=== PATIENT | female | born 1965 | race Caucasian/White ===

== ENCOUNTER 2019-08-23 10:24 | Outpatient (CLI) | payer MEDICARE, SELFPAY ==
[2019-08-23 11:24] LABS: Alanine Aminotransferase 17 U/L (4-35); Albumin Level 3.9 g/dL (3.5-5.1); Alkaline Phosphatase 108 U/L (38-126); Aspartate Amino Transferase 25 U/L (14-36); Bilirubin,Total 0.2 mg/dL (0.2-1.3); Blood Urea Nitrogen 14 mg/dL (7-17); Calcium 9.1 mg/dL (8.4-10.2); Carbon Dioxide 22 mmol/L (22-30); Chloride 107 mmol/L (98-107); Cholesterol 286 mg/dL (0-200); Estimated Glomerular Filt Rate 36; Glucose 102 mg/dL (65-105); HDL Direct 33 mg/dL; Potassium 3.7 mmol/L (3.4-5.0); Sodium 139 mmol/L (137-145); Triglycerides 294 mg/dL (<150)
[2019-08-23 11:34] LABS: LDL Cholesterol Direct 206 mg/dL
[2019-08-23 12:43] LABS: Folic Acid > 20.0 ng/mL (2.76->20)
[2019-08-26 23:04] LABS: Vitamin D 1,25 (OH)2 Total 33 pg/mL (18-72); Vitamin D2 1,25 (OH)2 12 pg/mL; Vitamin D3 1,25 (OH)2 21 pg/mL
== END 2019-08-23 10:25 | disposition home or self-care (01) ==
PROVIDERS: PCP Family Medicine; Visit Provider Family Medicine
DX: E78.5 Hyperlipidemia, unspecified (principal); E53.8 Deficiency of other specified B group vitamins; E55.9 Vitamin D deficiency, unspecified
CPT/HCPCS: 36415; 80053; 80061; 82607; 82652; 82746

== ENCOUNTER 2019-08-27 10:23 | Outpatient (CLI) | payer MEDICARE, SELFPAY | END 2019-08-27 10:24 | disposition home or self-care (01) | PROVIDERS: PCP Family Medicine; Visit Provider Nurse Practitioner | DX: R19.7 Diarrhea, unspecified (principal) | CPT/HCPCS: 87045; 87046; 87269; 87324; 87427 ==

== ENCOUNTER 2019-09-09 08:27 | Outpatient (CLI) | payer MEDICARE, SELFPAY ==
--- NOTE | ~2019-09-09 | MM_ITS ---
EXAMINATION: MM screening [facility] BI w chivo HISTORY: Screening mammogram TECHNIQUE: Craniocaudal and mediolateral oblique 3-D tomosynthesis images were obtained and synthetic 2-D images were generated. CAD analysis was submitted and interpreted. COMPARISON: 03/01/2010, 09/13/2008 BREAST PARENCHYMAL COMPOSITION: The breasts are heterogeneously dense, which may obscure small masses . FINDINGS: There is no evidence of suspicious mass, calcification, or architectural distortion to sugg est malignancy in either breast. There has been no suspicious interval change. IMPRESSION: 1. No mammographic evidence of malignancy. 2. Recommend routine screening mammography in one year. BI-RADS Category 1: Negative Reviewed, dictated and finalized at location A. [employer]
== END 2019-09-09 08:28 | disposition home or self-care (01) ==
PROVIDERS: PCP Family Medicine; Visit Provider Family Medicine
DX: Z12.31 Encounter for screening mammogram for malignant neoplasm of breast (principal)
CPT/HCPCS: 77063; 77067

== ENCOUNTER 2019-11-15 09:39 | Outpatient (CLI) | payer MEDICARE, SELFPAY ==
--- NOTE | ~2019-11-15 | XR_ITS ---
XR lumbar spine min 4V 11/15/2019 10:14 Indication: Low back pain Procedure: 5 views lumbar spine Comparison: Comparison to multiple prior studies sequentially, with oldest reviewed study dated 02/2004. Findings: Vertebral body heights are maintained. No acute fracture or traumatic malalignment. There i s mild disc narrowing at L4-5 and L5-S1. Pedicles intact. No evidence for spondylolysis or spondyloli sthesis. There is mild facet degenerative change at L4-5 and L5-S1. Sacral foramen are symmetric. Impression: 1: Mild lumbar spondylosis. Reviewed, dictated and finalized at location A. Impression: 1: Mild lumbar spondylosis.
[2019-11-15 10:07] LABS: Basophils Absolute Auto 0.1 K/mm3 (0.0-0.1); Basophils Percent Auto 0.9 % (0.2-1.2); Eosinophils Absolute Auto 0.3 K/mm3 (0-0.3); Eosinophils Percent Auto 4.6 % (0-4.4); Hematocrit 34.9 % (37.0-47.0); Hemoglobin 11.2 g/dL (12.0-15.0); Immature Granulocyte Absolute 0.02 K/mm3 (0.00-0.031); Immature Granulocyte Percent A 0.3 % (0-0.5); Immature Platelet Fraction Pct 2.5 % (0.9-11.2); Lymphocytes Percent Auto 42.1 % (18.3-44.2); Mean Corpuscular HGB Conc 32.1 g/dl (32-36); Mean Corpuscular Hemoglobin 31.5 pg (26-34); Mean Platelet Volume 9.4 fl (7.4-10.4); Monocytes Absolute Auto 0.4 K/mm3 (0.1-0.6); Monocytes Percent Auto 5.8 % (2.6-8.5); Neutrophils Absolute Auto 3.4 K/mm3 (1.3-6.7); Neutrophils Percent Auto 46.3 % (45.5-73.1); Platelet Count Result 129 k/mm3 (150-375); Red Blood Count 3.56 M/mm3 (4.2-5.4); Red Cell Distribution Width 13.1 % (11.5-14.5); White Blood Count 7.4 K/mm3 (4.5-10.0)
[2019-11-15 10:18] LABS: Alanine Aminotransferase 12 U/L (4-35); Alkaline Phosphatase 86 U/L (38-126); Aspartate Amino Transferase 23 U/L (14-36); Bilirubin,Total 0.2 mg/dL (0.2-1.3); Blood Urea Nitrogen 16 mg/dL (7-17); Calcium 8.9 mg/dL (8.4-10.2); Carbon Dioxide 26 mmol/L (22-30); Chloride 107 mmol/L (98-107); Cholesterol 159 mg/dL (0-200); Estimated Glomerular Filt Rate 31; Glucose 107 mg/dL (65-105); HDL Direct 46 mg/dL; Potassium 3.9 mmol/L (3.4-5.0); Sodium 140 mmol/L (137-145); Triglycerides 323 mg/dL (<150)
[2019-11-15 10:29] LABS: LDL Cholesterol Direct 73 mg/dL
[2019-11-15 10:53] LABS: Vitamin D 25 Hydroxy 17.1 ng/mL
== END 2019-11-15 09:40 | disposition home or self-care (01) ==
PROVIDERS: PCP Family Medicine; Visit Provider Nurse Practitioner
DX: M54.5 Low back pain (principal); R53.83 Other fatigue; I10 Essential (primary) hypertension; E78.5 Hyperlipidemia, unspecified; E53.8 Deficiency of other specified B group vitamins; E55.9 Vitamin D deficiency, unspecified
CPT/HCPCS: 36415; 72110; 80053; 80061; 82306; 82607; 84443; 85025; 85055

== ENCOUNTER 2020-01-12 14:28 | Emergency (ER) | payer MEDICARE, SELFPAY ==
--- NOTE | ~2020-01-12 | XR_ITS ---
EXAMINATION: XR hip LT min 2V INDICATION: Left hip pain TECHNIQUE: Two views of the left hip are obtained. COMPARISON: None available FINDINGS: Bone alignment is normal. There is no fracture. The femoral head is well-seated in the acet abulum. The soft tissues are unremarkable. IMPRESSION: 1. No acute osseous abnormality. Reviewed, dictated and finalized at location A.
--- NOTE | ~2020-01-12 | CT_ITS ---
EXAMINATION: CT thoracic lumbar wo con DATE: 01/12/2020 18:17 INDICATION: Back pain after fall TECHNIQUE: Computed tomography (CT) of the thoracic and lumbar spine was performed without intravenou s contrast. The dose-length product (DLP) was 270.40 mGy-cm. Iterative reconstruction was used. COMPARISON: 02/06/2016 FINDINGS: Thoracic spine: There is a chronic mild superior endplate compression fracture of T7. No acute fractu re is identified. Bone alignment is normal. There is mild loss of intervertebral disc space height at multiple levels in the thoracic spine. The prevertebral soft tissues are normal. Moderate emphysema is noted. There is calcified coronary artery atherosclerosis. Lumbar spine: There is no fracture, dislocation, or subluxation. Vertebral body alignment is normal. The intervertebral disc spaces are maintained. There is mild multilevel facet joint osteoarthritis. IMPRESSION: 1. No acute osseous abnormality of the thoracic or lumbar spine. Chronic mild T7 compression fracture . Reviewed, dictated and finalized at location A. IMPRESSION: 1. No acute osseous abnormality of the thoracic or lumbar spine. Chronic mild T 7 compression fracture.
[2020-01-12 14:57] VITALS: BP 139/76; PULSE 82; RESP 16; TEMP 37; O2SAT 99
[2020-01-12 15:38] LABS: Basophils Percent Auto 0.8 % (0.2-1.2); Eosinophils Absolute Auto 0.2 K/mm3 (0-0.3); Eosinophils Percent Auto 3.1 % (0-4.4); Hemoglobin 12.1 g/dL (12.0-15.0); Immature Platelet Fraction Pct 2.5 % (0.9-11.2); Lymphocytes Absolute Auto 1.43 K/mm3 (0.9-3.2); Lymphocytes Percent Auto 29.9 % (18.3-44.2); Mean Corpuscular HGB Conc 33.6 g/dl (32-36); Mean Corpuscular Hemoglobin 30.9 pg (26-34); Mean Corpuscular Volume 91.8 fl (80-100); Mean Platelet Volume 9.9 fl (7.4-10.4); Monocytes Absolute Auto 0.3 K/mm3 (0.1-0.6); Monocytes Percent Auto 6.5 % (2.6-8.5); Neutrophils Absolute Auto 2.9 K/mm3 (1.3-6.7); Neutrophils Percent Auto 59.7 % (45.5-73.1); Platelet Count Result 138 k/mm3 (150-375); Red Blood Count 3.92 M/mm3 (4.2-5.4); Red Cell Distribution Width 13.1 % (11.5-14.5); White Blood Count 4.8 K/mm3 (4.5-10.0)
[2020-01-12 15:49] LABS: Alanine Aminotransferase 16 U/L (4-35); Albumin Level 4.2 g/dL (3.5-5.1); Alkaline Phosphatase 122 U/L (38-126); Aspartate Amino Transferase 39 U/L (14-36); Bilirubin,Total 0.2 mg/dL (0.2-1.3); Blood Urea Nitrogen 24 mg/dL (7-17); Calcium 9.7 mg/dL (8.4-10.2); Carbon Dioxide 22 mmol/L (22-30); Chloride 110 mmol/L (98-107); Estimated CRCL calculation 24 ml/min; Estimated Glomerular Filt Rate 31; Glucose 104 mg/dL (65-105); Potassium 3.5 mmol/L (3.4-5.0); Sodium 143 mmol/L (137-145)
--- NOTE | 2020-01-12 17:28 | ED.GENADULT ---
HPI - General Adult General Chief complaint: Unspecified Stated complaint: fall, also unable to urinate hx kidney dx Time Seen by Provider: 01/12/20 17:19 History of Present Illness HPI narrative: Lower abck pain since fall yesterday. Tried usual pain medications without relief. She has been ambulatory since that time. Additionally c/o not being able to urinate. She says that she is concerned because she was recnetly told that she has kidney failure and has not been able to see her optical glass silverer yet. On chart review her creatinine and BUN have relativeley stable for quite sme time. Related Data Home Medications Medication Instructions Recorded Confirmed lorazepam 0.5 mg tablet 0.5 mg PO DAILY PRN 05/26/19 11/16/19 mirtazapine 45 mg tablet See Rx Instructions PO DAILY 05/26/19 11/16/19 quetiapine 300 mg tablet 300 mg PO DAILY tablet 05/26/19 11/16/19 sertraline 100 mg tablet 100 mg PO DAILY 05/26/19 11/16/19 Allergies Allergy/AdvReac Type Severity Reaction Status Date / Time amoxicillin [From Augmentin] Allergy Mild Rash Verified 11/16/19 10:01 clavulanic acid Allergy Mild Rash Verified 11/16/19 10:01 [From Augmentin] Penicillins Allergy Mild rash Verified 11/16/19 10:01 Review of Systems Review of Systems: All systems reviewed & are unremarkable except as noted in HPI and below Constitutional: Constitutional: Denies fever(s) Cardiovascular: Cardiovascular: Denies chest pain Respiratory: Respiratory: Denies dyspnea Gastrointestinal: Gastrointestinal: Denies abdominal pain Genitourinary: Genitourinary: Denies hematuria and Denies dysuria Musculoskeletal: Musculoskeletal: Reports back pain Neurologic: Denies numbness and Denies weakness [facility] Past Medical History Medical History Arthritis, rheumatoid Cat scratch fever Chest pain on breathing Delayed union of fracture of humerus Frequent sinus infections GERD (gastroesophageal reflux disease) Hip pain, right Osteoporosis Pain in toe of left foot Right ear impacted cerumen Right shoulder pain Surgical History Surgical History S/P shoulder surgery Family History Family History Father Family history of malignant neoplasm of brain, Onset Age: 50 Patient's father is Mother Family history of renal failure, Onset Age: 30 Patient's mother is Grandparent Acute myocardial infarction, Onset Age: 72 Family history of liver disease, Onset Age: 72 Family history of malignant neoplasm, Onset Age: 72 Other Family history of arthritis Family history of cardiovascular disease Hypertension Social History Social History Social History: Pt started smoking at 19 Smoking packs per day: 1.5 Smoking cigarettes per day: 30.0 Smoking status: Current every day smoker Tobacco type: cigarettes Second hand tobacco smoke exposure: Yes Alcohol intake: never Exam Const: General: no acute distress, alert and ill appearing chronically Nutritional Appearance: thin Orientation/consciousness: patient oriented x3 HENMT: Head: normal to inspection Resp: Effort & Inspection: normal respiratory effort Auscultation: clear to auscultation bilaterally Cardio: Rate: regular rate Rhythm: regular rhythm GI: GI Palp: Yes Soft to palpation and No Tenderness to palpation present (GI) Back/Spine/Pelvis: Other: Thoracic and lumbar tenderness Skin: General skin exam: normal color Wounds: wound noted Neuro: General: patient oriented x3, no focal motor deficits and CN's II-XI intact bilaterally Speech: normal speech Gait exam (Neuro): Normal gait present Extrem: General: normal to inspection Course Vital Signs Vital signs: Vital Signs Temperature 37.0 C 06/
[2020-01-12 18:41] LABS: Add Urine Microscopic? YES; Appearance Urine Clear (Clear); Bilirubin Urine Negative (Negative); Blood Urine Negative (Negative); Color Urine Yellow (Yellow); Glucose Urine UA Negative (Negative); Ketones Urine Negative (Negative); Leukocyte Esterase Ur Negative LEU/UL (Negative); Mucus Urine Rare /lpf; Nitrate Urine Negative (Negative); Protein Urine 2+ mg/dL (Negative); RBC Urine 0-2 /hpf (0-2); Specific Grav Ur 1.016 (1.001-1.035); Squamous Epithelial Cell Urine Rare /hpf (Few); Urobilinogen Urine Negative mg/dL (<2.0); WBC Urine 0-3 /hpf
[2020-01-12] MEDS: SODIUM CHLORIDE 0.9% IV 1,000 ML 999 ML IV CONT (18:59)
[2020-01-12 21:13] VITALS: BP 151/91; PULSE 95; RESP 16; O2SAT 98
== END 2020-01-12 20:04 | disposition home or self-care (01) ==
PROVIDERS: Emergency Provider Emergency Medicine; PCP Family Medicine
DX: S39.92XA Unspecified injury of lower back, initial encounter (principal); M06.9 Rheumatoid arthritis, unspecified; K21.9 Gastro-esophageal reflux disease without esophagitis; M81.0 Age-related osteoporosis without current pathological fracture; F17.210 Nicotine dependence, cigarettes, uncomplicated; N18.9 Chronic kidney disease, unspecified; W19.XXXA Unspecified fall, initial encounter
CPT/HCPCS: 36415; 72128; 72131; 73502; 80053; 81001; 85025; 85055; 99284; J7030

== ENCOUNTER 2020-03-14 19:06 | Emergency (ER) | payer MEDICARE, SELFPAY ==
--- NOTE | ~2020-03-14 | XR_ITS ---
XR hip LT min 3V w AP pelvis 03/14/2020 19:55 INDICATION: Left hip pain after recent fall PROCEDURE: 4 views left hip including AP pelvis COMPARISON: 01/12/2020 FINDINGS: Fracture, dislocation or subluxation is not identified. Pelvic rings are intact. The soft t issues appear within normal limits. No foreign bodies are identified. IMPRESSION: 1: NO ACUTE BONE OR JOINT ABNORMALITY IDENTIFIED. Reviewed, dictated and finalized at location A.
--- NOTE | ~2020-03-14 | CT_ITS ---
EXAMINATION: CT thoracic lumbar wo con DATE: 03/14/2020 19:52 INDICATION: Fall. Mid and lower back pain. TECHNIQUE: Computed tomography (CT) of the thoracic and lumbar spine was performed without intravenou s contrast. The dose-length product was 277.73 mGy-cm. Automated exposure control and iterative recon struction technique were employed. COMPARISON: 01/12/2020 and 02/06/2016 FINDINGS: There are chronic superior endplate compression fractures of T2 and T7. Chronic wedge-shape d deformity of T6. Accentuated thoracic kyphosis. There is mild loss of disc height at multiple level s. There is emphysema. There is abnormal pleural-based soft tissue at the left apex, likely scarring given the lack of interval change from prior studies. There is chronic superior endplate compression deformity of L5, unchanged. No evidence for acute fracture or traumatic malalignment. IMPRESSION: 1. No acute abnormality of the thoracic or lumbar spine. Chronic deformities of T2, T6, T7 and L5. Reviewed, dictated and finalized at location A.
[2020-03-14 19:08] VITALS: BP 142/64; PULSE 105; RESP 15; TEMP 37.7; O2SAT 100
--- NOTE | 2020-03-14 19:28 | ED.GENADULT ---
HPI - General Adult General Chief complaint: Fall <PARIS Betts Last Filed: 03/14/20 20:15> Stated complaint: fall, back/neck pain <PARIS Betts Last Filed: 03/14/20 20:15> Time Seen by Provider: 03/14/20 19:17 <PARIS Betts Last Filed: 03/14/20 20:15> Source: patient <PARIS Betts Last Filed: 03/14/20 20:15> Mode of arrival: ambulatory <PARIS Betts Last Filed: 03/14/20 20:15> Limitations: no limitations <PARIS Betts Last Filed: 03/14/20 20:15> History of Present Illness HPI narrative: Patient is a 55-year-old female who presents to emergency department for evaluation of mid low back pain left hip and pelvic pain after falling backwards last night while attempting to sit in a chair that was not there patient denies head injury syncope loss of consciousness patient presents with moderate aching pain of the upper back and lower back left hip and pelvis. Patient otherwise in the room in no distress <PARIS Betts Last Filed: 03/14/20 20:15> Related Data Home medications: Home Medications Medication Instructions Recorded Confirmed lorazepam 0.5 mg tablet 0.5 mg PO DAILY PRN 05/26/19 11/16/19 mirtazapine 45 mg tablet See Rx Instructions PO DAILY 05/26/19 11/16/19 quetiapine 300 mg tablet 300 mg PO DAILY tablet 05/26/19 11/16/19 sertraline 100 mg tablet 100 mg PO DAILY 05/26/19 11/16/19 <PARIS Betts Last Filed: 03/14/20 20:15> Allergies/adverse reactions: Allergies Allergy/AdvReac Type Severity Reaction Status Date / Time amoxicillin [From Augmentin] Allergy Mild Rash Verified 03/14/20 19:17 clavulanic acid Allergy Mild Rash Verified 03/14/20 19:17 [From Augmentin] Penicillins Allergy Mild rash Verified 03/14/20 19:17 <PARIS Betts Last Filed: 03/14/20 20:15> Review of Systems Review of Systems: All systems reviewed & are unremarkable except as noted in HPI and below <Joe Nicholson PA-C - Last Filed: 03/14/20 20:15> [facility] Past Medical History Medical History: Medical History Arthritis, rheumatoid Cat scratch fever Chest pain on breathing Delayed union of fracture of humerus Frequent sinus infections GERD (gastroesophageal reflux disease) Hip pain, right Osteoporosis Pain in toe of left foot Right ear impacted cerumen Right shoulder pain <Joe Nicholson PA-C - Last Filed: 03/14/20 20:15> Surgical History Surgical History: Surgical History S/P shoulder surgery <Joe Nicholson PA-C - Last Filed: 03/14/20 20:15> Social History Social History: Social History Social History: Pt started smoking at 19 Smoking packs per day: 1.5 Smoking cigarettes per day: 30.0 Smoking status: Current every day smoker Tobacco type: cigarettes Second hand tobacco smoke exposure: Yes Alcohol intake: never <Joe Nicholson PA-C - Last Filed: 03/14/20 20:15> Exam Narrative: Exam Narrative: GENERAL: Well-appearing, well-nourished, and in no acute distress. HEAD: Normocephalic, atraumatic. EYES: PERRLA and EOMI. ENT: Nares clear, no rhinorrhea or epistaxis. Mucous membranes moist. NECK: Supple. No adenopathy or masses. CHEST: Clear to auscultation. No respiratory distress. No wheezes rales or rhonchi HEART: Regular rate and rhythm. No murmur heard. Normal peripheral pulses. EXTREMITIES: Normal range of motion. No edema. Mid thoracic and lumbar tenderness. No cervical spine tenderness . No bruising or deformities of the extremities or spine. Tenderness of the left hip. SKIN: Warm, dry, no rash. NEURO: No focal deficits. Alert and oriented x3. Cranial nerves II through XII grossly intact PSYCH: Normal mood and affect. <Joe Nicholson PA-C
[2020-03-14 20:15] VITALS: BP 133/88; PULSE 88; RESP 19; O2SAT 99
== END 2020-03-14 20:15 | disposition home or self-care (01) ==
PROVIDERS: Emergency Provider General Practice; PCP Family Medicine
DX: S29.012A Strain of muscle and tendon of back wall of thorax, initial encounter (principal); S39.012A Strain of muscle, fascia and tendon of lower back, initial encounter; S70.02XA Contusion of left hip, initial encounter; M06.9 Rheumatoid arthritis, unspecified; K21.9 Gastro-esophageal reflux disease without esophagitis; W01.0XXA Fall on same level from slipping, tripping and stumbling without subsequent striking against object, initial encounter
CPT/HCPCS: 72128; 72131; 73502; 99284

== ENCOUNTER 2020-04-09 21:48 | Emergency (ER) | payer MEDICARE, SELFPAY ==
[2020-04-09 21:50] VITALS: BP 125/90; PULSE 72; RESP 19; TEMP 36.6; O2SAT 98
--- NOTE | 2020-04-10 00:41 | PC.NURSE ---
1st call no answer.
--- NOTE | 2020-04-10 02:00 | PC.NURSE ---
n/a at 0156 when pt called to be roomed.
== END 2020-04-10 02:00 | disposition left against medical advice (07) ==
PROVIDERS: PCP Family Medicine
DX: T24.002A Burn of unspecified degree of unspecified site of left lower limb, except ankle and foot, initial encounter (principal)
CPT/HCPCS: 99199

== ENCOUNTER 2020-05-01 14:44 | Outpatient (CLI) | payer MEDICARE, SELFPAY ==
--- NOTE | ~2020-05-01 | XR_ITS ---
EXAMINATION: XR chest 2V DATE: 05/01/2020 15:05 INDICATION: Nicotine dependence TECHNIQUE: PA and lateral views of the chest are obtained. COMPARISON: 05/08/2019 FINDINGS: The lungs are hyperinflated but free of acute opacities. Symmetric scarring is noted in the lung apices. There is no pleural effusion or pneumothorax. The cardiomediastinal silhouette is carolyn l. There is mild thoracic spondylosis. There is an old healed fracture of the left proximal humerus. There are also appears to be internal stabilization hardware in the proximal left ulna. IMPRESSION: 1. No acute cardiopulmonary abnormality. Reviewed, dictated and finalized at location A.
== END 2020-05-01 14:45 | disposition home or self-care (01) ==
PROVIDERS: Visit Provider Internal Medicine
DX: F17.200 Nicotine dependence, unspecified, uncomplicated (principal); M06.9 Rheumatoid arthritis, unspecified
CPT/HCPCS: 71046

== ENCOUNTER 2020-06-05 13:29 | Outpatient (CLI) | payer MEDICARE, SELFPAY ==
--- NOTE | ~2020-06-05 | MR_ITS ---
EXAMINATION: MR hand LT wo con, MR hand RT wo con DATE: 06/05/2020 15:20 INDICATION: Rheumatoid arthritis TECHNIQUE: Magnetic resonance imaging (MRI) of the right and left hands was performed without intrave nous contrast to include the metacarpals and digits but which excludes the wrist joint and portions o f the proximal carpal row at both hands. Sequences included axial, sagittal and coronal T1-weighted F SE and fluid sensitive FSE STIR and axial T2-weighted FS FSE. COMPARISON: None FINDINGS: Left hand: Metallic magnetic field artifact with signal loss and spatial distortion at the level of the wrist an d proximal carpal row which appears to result from a volar T plate and screw fixation at the distal l eft radius. No fracture or pathologic marrow replacing process. There is palmar subluxation at the se cond, third and to lesser degree fifth metacarpophalangeal joints with severe secondary osteoarthriti s including remodeling of the articular surfaces at the base of the associated proximal phalanges mos t severe at the third proximal phalanx. Additional prominent palmar subluxation and severe secondary osteoarthritis at the fourth proximal interphalangeal joint. There is thickening and mild increased s ignal at the associated radial ulnar collateral ligaments at each of these joints consistent with deg eneration/scarring without clearly defined tear. Additional moderate osteoarthritis at the first carp ometacarpal and fifth metacarpophalangeal joints and mild osteoarthritis at the triscaphe and remaini ng metacarpophalangeal and interphalangeal joints in the left hand. The visualized portions of the fl exor and extensor tendons appear normal with no tenosynovitis. Right hand: No fracture or pathologic marrow replacing process. Metallic artifact resulting in signal changes and spatial distortion in the region of the head of the first metacarpal and first metacarpophalangeal j oint. There is similar palmar subluxation and severe osteoarthritis as at the left hand at the right third metacarpophalangeal joint with remodeling of the dorsal base of the third proximal phalanx and degenerative scarring at the radial and ulnar collateral ligaments.. Mild palmar subluxation at the s econd metacarpophalangeal joint with mild to moderate osteoarthritis. Additional moderate osteoarthri tis at the second proximal and distal and fifth proximal interphalangeal joints. Mild osteoarthritis at the remaining metacarpophalangeal and interphalangeal joints. Severe osteoarthritis at the right f irst carpometacarpal joint with small joint effusions/synovitis and prominent subarticular edema at b oth sides of the joint space. There is small heterotopic ossicle versus degenerative osteochondral cathleen dy at the palmar aspect of the first metacarpal joint. Mild osteoarthritis at the triscaphe and midca rpal joints. The flexor and extensor tendons are normal with no tenosynovitis. IMPRESSION: 1. 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 2. Prominent marrow edema and small joint effusion/synovitis at the right first carpometacarpal joint most likely related to the severe osteoarthritis although differential would include active inflamma tion related to inflammatory arthritis such as rheumatoid. Reviewed, dictated and finalized at location . [employer] IMPRESSION: 1. 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
== END 2020-06-05 13:30 | disposition home or self-care (01) ==
PROVIDERS: Visit Provider Internal Medicine
DX: M06.9 Rheumatoid arthritis, unspecified (principal)
CPT/HCPCS: 73218

== ENCOUNTER 2020-06-12 12:37 | Outpatient (CLI) | payer MEDICARE, SELFPAY ==
[2020-06-12 13:30] LABS: Basophils Absolute Auto 0.1 K/mm3 (0.0-0.1); Basophils Percent Auto 0.8 % (0.2-1.2); Eosinophils Absolute Auto 0.2 K/mm3 (0-0.3); Eosinophils Percent Auto 3.2 % (0-4.4); Hematocrit 35.2 % (37.0-47.0); Hemoglobin 11.8 g/dL (12.0-15.0); Immature Granulocyte Absolute 0.02 K/mm3 (0.00-0.031); Immature Granulocyte Percent A 0.3 % (0-0.5); Immature Platelet Fraction Pct 3.8 % (0.9-11.2); Lymphocytes Absolute Auto 1.59 K/mm3 (0.9-3.2); Lymphocytes Percent Auto 24.2 % (18.3-44.2); Mean Corpuscular HGB Conc 33.5 g/dl (32-36); Mean Corpuscular Hemoglobin 31.3 pg (26-34); Mean Corpuscular Volume 93.4 fl (80-100); Mean Platelet Volume 9.8 fl (7.4-10.4); Monocytes Absolute Auto 0.3 K/mm3 (0.1-0.6); Neutrophils Absolute Auto 4.4 K/mm3 (1.3-6.7); Neutrophils Percent Auto 66.5 % (45.5-73.1); Platelet Count Result 117 k/mm3 (150-375); Red Blood Count 3.77 M/mm3 (4.2-5.4); Red Cell Distribution Width 13.2 % (11.5-14.5); White Blood Count 6.6 K/mm3 (4.5-10.0)
[2020-06-12 13:46] LABS: Alanine Aminotransferase 10 U/L (4-35); Albumin Level 4.1 g/dL (3.5-5.1); Alkaline Phosphatase 77 U/L (38-126); Anion Gap 7 mmol/L (8-16); Aspartate Amino Transferase 22 U/L (14-36); Bilirubin,Total 0.3 mg/dL (0.2-1.3); Blood Urea Nitrogen 23 mg/dL (7-17); CRP 3.2 mg/dL (<1.0); Calcium 9.8 mg/dL (8.4-10.2); Carbon Dioxide 26 mmol/L (22-30); Chloride 110 mmol/L (98-107); Estimated Glomerular Filt Rate 36; Glucose 99 mg/dL (65-105); Potassium 3.6 mmol/L (3.4-5.0); Sodium 143 mmol/L (137-145)
[2020-06-12 14:06] LABS: Erythrocyte Sedimentation Rate 88 mm/hr (0-20)
[2020-06-12 14:50] LABS: Hepatitis C Virus Antibody Negative (Negative)
[2020-06-14 10:54] LABS: Anti Cyclic Citrullinated Pept 59 Units (<20)
[2020-06-16 22:23] LABS: NIL 0.02 IU/mL; Quantiferon TB Plus, 1T NEGATIVE (NEGATIVE)
== END 2020-06-12 12:38 | disposition home or self-care (01) ==
PROVIDERS: Visit Provider Internal Medicine
DX: E55.9 Vitamin D deficiency, unspecified (principal); F17.200 Nicotine dependence, unspecified, uncomplicated; M06.9 Rheumatoid arthritis, unspecified
CPT/HCPCS: 36415; 80053; 85025; 85055; 85652; 86140; 86200; 86480; 86803

== ENCOUNTER 2020-08-27 14:19 | Emergency (ER) | payer MEDICARE, SELFPAY ==
[2020-08-27] VITALS (11 sets, daily range): BP systolic 106–148; BP diastolic 75–110; PULSE 78–93; RESP 16; TEMP 36.3–37.2; O2SAT 76–100
--- NOTE | ~2020-08-27 | US_ITS ---
US arterial ankle brachial ind INDICATION: Left great toe blue with ulceration. Loss of pulse. TECHNIQUE: Segmental pressures and plethysmographic and Doppler waveforms of the brachial and lower e xtremity arteries were obtained. COMPARISON: None. FINDINGS: Right and left brachial artery pressures of 143 mm Hg and 146 mm Hg, respectively, are concordant (no rmal difference <= 30 mmHg). The right ankle-brachial index (LYNN) is 1.05 (normal >= 0.9-1.0). The right great toe-brachial index (TBI) is 0.27 (normal >= 0.60). The left LYNN is 1.02. The left TBI is 0.14. IMPRESSION: 1. Severely diminished toe brachial indices bilaterally, consistent with peripheral arterial disease. Reviewed, dictated and finalized at location B. [employer] TECHNOLOGIST IMPRESSION: 1. Severely diminished toe brachial indices bilaterally, consistent with periph eral arterial disease.
--- NOTE | ~2020-08-27 | XR_ITS ---
XR toe 1st LT min 2V 08/27/2020 15:17 Indication: Black toe. Toe pain. Procedure: 4 views left first toe Comparison: 01/27/2018 Findings: There is erosion along the tuft of the left first distal phalanx which is new since prior e xamination. There is mild soft tissue swelling. Mild osteoarthritis of the first MTP joint. No foreig n bodies. Osteopenia. Impression: 1: New erosion involving the tuft left first distal phalanx. Consider osteomyelitis in the appropriat e clinical setting. Consider correlation with MRI. Reviewed, dictated and finalized at location B. LIVER SORTER Impression: 1: New erosion involving the tuft left first distal phalanx. Consider osteomyel itis in the appropriate clinical setting. Consider correlation with MRI.
--- NOTE | 2020-08-27 15:36 | PC.NURSE ---
patient brought back to ED room 16 with wound on her foot. see initial notes. patient has been in our waiting area due to no beds available in this ED. no change in patient's condition. alert. sitting in wheelchair.
--- NOTE | 2020-08-27 15:45 | PC.NURSE ---
patient moved to ED room 22 due to xray results. patient will need SL inserted and labs done per provider. patient updated on current treatment plan and expected wait time.
--- NOTE | 2020-08-27 15:56 | ED.EXTPRO ---
HPI - Extremity Problem General Chief complaint: Extremity Problem,Nontraumatic <Gladys Javier PA-C - Last Filed: 08/27/20 19:44> Stated complaint: POOR CIRCULATION TO FEET. BLACK TOE <PARIS Loredo Last Filed: 08/27/20 19:44> Time Seen by Provider: 08/27/20 15:26 <PARIS Loredo Last Filed: 08/27/20 19:44> Source: patient <PARIS Loredo Last Filed: 08/27/20 19:44> Mode of arrival: ambulatory <PARIS Loredo Last Filed: 08/27/20 19:44> Limitations: no limitations <PARIS Loredo Last Filed: 08/27/20 19:44> History of Present Illness HPI Narrative: This is a 55 year old female that presents to the ER for purple left great toe. Reports it has been like this for a week. Reports she started to note a blister to the bottom of the toe. Reports she recently quit smoking. Reports numbness to the toe. Denies fever, erythema, pain, or decreased ROM. <PARIS Loredo Last Filed: 08/27/20 19:44> Related Data Home medications: Home Medications Medication Instructions Recorded Confirmed mirtazapine 45 mg tablet See Rx Instructions PO DAILY 05/26/19 08/27/20 quetiapine 300 mg tablet 300 mg PO DAILY tablet 05/26/19 08/27/20 sertraline 100 mg tablet 100 mg PO DAILY 05/26/19 08/27/20 <PARIS Loredo Last Filed: 08/27/20 19:44> Allergies/Adverse reactions: Allergies Allergy/AdvReac Type Severity Reaction Status Date / Time amoxicillin [From Augmentin] Allergy Mild Rash Verified 08/27/20 14:33 clavulanic acid Allergy Mild Rash Verified 08/27/20 14:33 [From Augmentin] Penicillins Allergy Mild rash Verified 08/27/20 14:33 <PARIS Loredo Last Filed: 08/27/20 19:44> Review of Systems Review of Systems: Narrative: CONSTITUTIONAL: Denies fever MUSCULOSKELETAL: Denies joint pain, or myalgia. NEUROLOGIC: Reports numbness <Gladys Javier PA-C - Last Filed: 08/27/20 19:44> All systems reviewed & are unremarkable except as noted in HPI and below <Gladys Javier PA-C - Last Filed: 08/27/20 19:44> [facility] Past Medical History Medical History: Medical History Anxiety disorder, unspecified Arthritis, rheumatoid Cat scratch fever Chronic kidney disease (CKD) stage G3b/A1, moderately decreased glomerular filtration rate (GFR) between 30-44 mL/min/1.73 square meter and albuminuria creatinine ratio less than 30 mg/g Delayed union of fracture of humerus Essential (primary) hypertension Frequent sinus infections GERD (gastroesophageal reflux disease) Hip pain, right Hyperthyroidism Osteoporosis Other hyperlipidemia Right shoulder pain <Gladys Javier PA-C - Last Filed: 08/27/20 19:44> Surgical History Surgical History: Surgical History S/P shoulder surgery <Gladys Javier PA-C - Last Filed: 08/27/20 19:44> Family History Family History: Family History Father Family history of malignant neoplasm of brain, Onset Age: 50 Patient's father is Mother Family history of renal failure, Onset Age: 30 Patient's mother is Grandparent Acute myocardial infarction, Onset Age: 72 Family history of liver disease, Onset Age: 72 Family history of malignant neoplasm, Onset Age: 72 Other Family history of arthritis Family history of cardiovascular disease Hypertension <Gladys Javier PA-C - Last Filed: 08/27/20 19:44> Social History Social History: Social History (Updated 08/27/20 @ 16:00 by Gladys Javier PA-C) Social History: Pt started smoking at 19 Smoking packs per day: 1.5 Smoking cigarettes per day: 30.0 Smoking status: Former smoker Tobacco type: cigarettes Second hand tobacco smoke exposure: Yes Alcohol intake: never Substance use: ne
--- NOTE | 2020-08-27 16:10 | PC.NURSE ---
patient in ultrasound now for LYNN. will start IV and get labs when patient returns.
[2020-08-27 16:41] LABS: Basophils Absolute Auto 0.1 K/mm3 (0.0-0.1); Basophils Percent Auto 0.9 % (0.2-1.2); Eosinophils Absolute Auto 0.1 K/mm3 (0-0.3); Eosinophils Percent Auto 2.6 % (0-4.4); Hemoglobin 13.1 g/dL (12.0-15.0); Immature Granulocyte Absolute 0.01 K/mm3 (0.00-0.031); Immature Granulocyte Percent A 0.2 % (0-0.5); Immature Platelet Fraction Pct 3.7 % (0.9-11.2); Lymphocytes Absolute Auto 2.13 K/mm3 (0.9-3.2); Mean Corpuscular HGB Conc 34.5 g/dl (32-36); Mean Corpuscular Hemoglobin 31.1 pg (26-34); Mean Corpuscular Volume 90.3 fl (80-100); Mean Platelet Volume 9.6 fl (7.4-10.4); Monocytes Absolute Auto 0.3 K/mm3 (0.1-0.6); Monocytes Percent Auto 6.4 % (2.6-8.5); Neutrophils Absolute Auto 2.7 K/mm3 (1.3-6.7); Neutrophils Percent Auto 49.9 % (45.5-73.1); Platelet Count Result 138 k/mm3 (150-375); Red Blood Count 4.21 M/mm3 (4.2-5.4); Red Cell Distribution Width 12.9 % (11.5-14.5); White Blood Count 5.3 K/mm3 (4.5-10.0)
--- NOTE | 2020-08-27 16:45 | PC.NURSE ---
patient back from LYNN. SL inserted. labs drawn. patient on BP and O2 monitors. discussed with provider. patient will need further studies on right leg for circulation and r/o DVT.
[2020-08-27 16:53] LABS: Prothrombin Time 13.3 Seconds (11.1-14.7)
[2020-08-27 16:54] LABS: Partial Thromboplastin Time 23.7 SECONDS (22.3-36.8)
[2020-08-27 16:58] LABS: Anion Gap 5 mmol/L (8-16); Blood Urea Nitrogen 16 mg/dL (7-17); CRP < 0.5 mg/dL (<1.0); Calcium 9.7 mg/dL (8.4-10.2); Carbon Dioxide 27 mmol/L (22-30); Chloride 110 mmol/L (98-107); Estimated CRCL calculation 23 ml/min; Estimated Glomerular Filt Rate 31; Glucose 83 mg/dL (65-105); Potassium 4.7 mmol/L (3.4-5.0); Sodium 142 mmol/L (137-145)
[2020-08-27 17:21] LABS: Erythrocyte Sedimentation Rate 44 mm/hr (0-20)
--- NOTE | 2020-08-27 17:36 | PC.NURSE ---
provider in room. will call previous physician for possible transfer for vascular work up.
--- NOTE | 2020-08-27 18:00 | PC.NURSE ---
planning transfer to [facility]. patient aware. has her cell phone. has spoke with her family.
--- NOTE | 2020-08-27 18:32 | PC.NURSE ---
patient is aware of transfer to [facility]. waiting for bed assignment. patient updated on possible wait time. has cell phone. states her is coming up to get their vehicle.
[2020-08-27] MEDS: QUEtiapine FUMARATE 100 MG TABLET 300 MG PO (23:41)
[2020-08-27] MEDS: BACLOFEN 5 MG TABLET PO (23:42)
[2020-08-27] MEDS: MIRTAZAPINE 15 MG TABLET 45 MG PO (23:43)
--- NOTE | 2020-08-28 01:15 | PC.NURSE ---
[facility] bed placement called verifying that patient still needs a bed
[2020-08-28 04:15] VITALS: BP 145/64; PULSE 82; RESP 16; TEMP 36.8; O2SAT 97
--- NOTE | 2020-08-28 08:34 | PC.NURSE ---
called [facility] about bed, they are on limited beds and dont know when they will have a bed. for this pt.
[2020-08-28 09:47] VITALS: BP 134/80; PULSE 78; RESP 14; O2SAT 98
--- NOTE | 2020-08-28 12:39 | PC.NURSE ---
pt and informed that md trying to get pt admitted to [place]
[2020-08-28 12:42] VITALS: BP 109/80; PULSE 83; RESP 16; O2SAT 100
[2020-08-28 16:07] VITALS: BP 114/90; PULSE 74; RESP 16; O2SAT 97
--- NOTE | 2020-08-28 19:04 | PC.NURSE ---
called [facility] amb. 1615 no staff for transport, , mark only one truck for transport 16 20.
[2020-08-28 19:11] VITALS: BP 145/86; PULSE 78; RESP 16; O2SAT 97
== END 2020-08-28 19:00 | disposition short-term general hospital (02) ==
PROVIDERS: Physician Assistant; Emergency Provider Emergency Medicine
DX: I75.022 Atheroembolism of left lower extremity (principal); I70.25 Atherosclerosis of native arteries of other extremities with ulceration; L97.529 Non-pressure chronic ulcer of other part of left foot with unspecified severity; F41.9 Anxiety disorder, unspecified; M06.9 Rheumatoid arthritis, unspecified; I12.9 Hypertensive chronic kidney disease with stage 1 through stage 4 chronic kidney disease, or unspecified chronic kidney disease; N18.32 Chronic kidney disease, stage 3b; Z87.891 Personal history of nicotine dependence; K21.9 Gastro-esophageal reflux disease without esophagitis; E05.90 Thyrotoxicosis, unspecified without thyrotoxic crisis or storm; M81.0 Age-related osteoporosis without current pathological fracture; E78.49 Other hyperlipidemia; M85.872 Other specified disorders of bone density and structure, left ankle and foot
CPT/HCPCS: 36415; 73660; 80048; 85025; 85055; 85610; 85652; 85730; 86140; 93922; 96374; 99285; A9270; J2543

== ENCOUNTER 2021-03-14 23:04 | Emergency (ER) | payer MEDICARE, SELFPAY ==
[2021-03-14 23:13] VITALS: BP 156/78; PULSE 55; RESP 16; TEMP 36.8; O2SAT 97
[2021-03-14 23:35] VITALS: BP 141/68; PULSE 96; RESP 16; TEMP 36.7; O2SAT 100
--- NOTE | 2021-03-14 23:37 | ED.WOUNDLAC ---
HPI - Wound/Laceration General Chief Complaint: Wound/Laceration Stated Complaint: bleeding from surgical site Time Seen by Provider: 03/14/21 23:28 History of Present Illness HPI narrative: Patient presents for a wound site inspection. Patient reports she fractured her femur and had surgical repair earlier this month. Reports has been recovering well night however she was walking around her house and excellently bumped into her stove. She had bleeding from her surgical wound site and she was concerned because she is on blood thinners. Her put a bandage on and they came to the ER for evaluation. She reports mild increase in pain but is been able to ambulate well. Related Data Home Medications Medication Instructions Recorded Confirmed mirtazapine 45 mg tablet See Rx Instructions PO DAILY 05/26/19 08/27/20 quetiapine 300 mg tablet 300 mg PO DAILY tablet 05/26/19 08/27/20 sertraline 100 mg tablet 100 mg PO DAILY 05/26/19 08/27/20 Allergies Allergy/AdvReac Type Severity Reaction Status Date / Time amoxicillin [From Augmentin] Allergy Mild Rash Verified 08/27/20 14:33 clavulanic acid Allergy Mild Rash Verified 08/27/20 14:33 [From Augmentin] Penicillins Allergy Mild rash Verified 08/27/20 14:33 Review of Systems Review of Systems: CONSTITUTIONAL: Denies fever, chills, or sweats. EYES: Denies visual changes, redness, or discharge. ENT: Denies rhinorrhea, congestion, sore throat, or otalgia. CARDIOVASCULAR: Denies chest pain, palpitations, or edema. RESPIRATORY: Denies cough or dyspnea. GASTROINTESTINAL: Denies abdominal pain, nausea, vomiting, or diarrhea. SKIN: Denies rash or itching. MUSCULOSKELETAL: Denies back pain, joint pain, or myalgia. NEUROLOGIC: Denies headache, numbness, dizziness, or weakness. All systems reviewed & are unremarkable except as noted in HPI and below PMFSH Past Medical History Medical History Anxiety disorder, unspecified Arthritis, rheumatoid Cat scratch fever Chronic kidney disease (CKD) stage G3b/A1, moderately decreased glomerular filtration rate (GFR) between 30-44 mL/min/1.73 square meter and albuminuria creatinine ratio less than 30 mg/g Delayed union of fracture of humerus Essential (primary) hypertension Frequent sinus infections GERD (gastroesophageal reflux disease) Hip pain, right Hyperthyroidism Osteoporosis Other hyperlipidemia Right shoulder pain Surgical History Surgical History S/P shoulder surgery Family History Family History Father Family history of malignant neoplasm of brain, Onset Age: 50 Patient's father is Mother Family history of renal failure, Onset Age: 30 Patient's mother is Grandparent Acute myocardial infarction, Onset Age: 72 Family history of liver disease, Onset Age: 72 Family history of malignant neoplasm, Onset Age: 72 Other Family history of arthritis Family history of cardiovascular disease Hypertension Social History Social History Social History: Pt started smoking at 19 Smoking packs per day: 1.5 Smoking cigarettes per day: 30.0 Smoking status: Former smoker Tobacco type: cigarettes Second hand tobacco smoke exposure: Yes Alcohol intake: never Substance use: never Gender identity (if verbalized by the patient): Female Exam Narrative: GENERAL: Well-appearing, well-nourished, and in no acute distress. HEAD: Normocephalic, atraumatic. EYES: PERRLA and EOMI. ENT: Nares clear, no rhinorrhea or epistaxis. Mucous membranes moist. EXTREMITIES: Age-appropriate hearing of a surgical scar there is a moderately soiled bandage and some dried blood around the site there is no active bleeding no significant tenderness no purulent
[2021-03-15 00:11] VITALS: BP 130/61; PULSE 95; RESP 16; O2SAT 100
== END 2021-03-15 00:14 | disposition home or self-care (01) ==
PROVIDERS: Emergency Provider Emergency Medicine
DX: Z48.01 Encounter for change or removal of surgical wound dressing (principal); M06.9 Rheumatoid arthritis, unspecified; I12.9 Hypertensive chronic kidney disease with stage 1 through stage 4 chronic kidney disease, or unspecified chronic kidney disease; N18.32 Chronic kidney disease, stage 3b; K21.9 Gastro-esophageal reflux disease without esophagitis; E05.90 Thyrotoxicosis, unspecified without thyrotoxic crisis or storm; M81.0 Age-related osteoporosis without current pathological fracture; E78.49 Other hyperlipidemia; F41.9 Anxiety disorder, unspecified; Z87.891 Personal history of nicotine dependence
CPT/HCPCS: 99282

== ENCOUNTER 2021-05-12 14:30 | Observation (INO) | payer MEDICARE, SELFPAY ==
--- NOTE | ~2021-05-12 | XR_ITS ---
XR foot RT min 3V DATE: 05/12/2021 15:18 INDICATION: First digit swelling and erythema TECHNIQUE: 4 views COMPARISON: None FINDINGS: There is diffuse osteopenia. Mild plantar calcaneal enthesopathy. Prominent osteoarthritis at the first metatarsophalangeal joint. No fracture or dislocation, periosteal reaction or bone destruction is detected. IMPRESSION: Osteopenia Mild plantar calcaneal enthesopathy Osteoarthritis at first metatarsophalangeal joint Reviewed, dictated and finalized at location A.
--- NOTE | ~2021-05-12 | XR_ITS ---
XR wrist RT min 3V DATE: 05/12/2021 15:18 INDICATION: Pain, swelling, erythema TECHNIQUE: 4 views COMPARISON: None FINDINGS: Diffuse osteopenia. Status post surgical fusion at the first metacarpophalangeal joint. Severe osteoarthritis at the first carpal metacarpal joint and third metacarpophalangeal joint. There is osteoarthritic involvement at multiple interphalangeal joints. No recent fracture or dislocation. No periosteal reaction or bone destruction. IMPRESSION: Polyarticular osteoarthritis Osteopenia Status post surgical fusion of first metacarpophalangeal joint Reviewed, dictated and finalized at location A.
[2021-05-12 14:51] VITALS: BP 127/72; PULSE 103; RESP 16; TEMP 36.8; O2SAT 100
[2021-05-12] MEDS: HYDROcodone/acetaminophen (*CRX) 5-325 MG TABLET 1 TAB PO (15:07)
[2021-05-12 15:27] LABS: Basophils Percent Auto 0.4 % (0.2-1.2); Eosinophils Absolute Auto 0.1 K/mm3 (0-0.3); Eosinophils Percent Auto 1.1 % (0-4.4); Hematocrit 32.5 % (37.0-47.0); Hemoglobin 10.5 g/dL (12.0-15.0); Immature Granulocyte Absolute 0.03 K/mm3 (0.00-0.031); Immature Granulocyte Percent A 0.4 % (0-0.5); Lymphocytes Absolute Auto 1.27 K/mm3 (0.9-3.2); Mean Corpuscular HGB Conc 32.3 g/dl (32-36); Mean Corpuscular Volume 99.1 fl (80-100); Mean Platelet Volume 9.9 fl (7.4-10.4); Monocytes Absolute Auto 0.7 K/mm3 (0.1-0.6); Monocytes Percent Auto 9.1 % (2.6-8.5); Neutrophils Absolute Auto 5.4 K/mm3 (1.3-6.7); Platelet Count Result 204 k/mm3 (150-375); Red Blood Count 3.28 M/mm3 (4.2-5.4); Red Cell Distribution Width 15.4 % (11.5-14.5); White Blood Count 7.5 K/mm3 (4.5-10.0)
[2021-05-12 15:30] LABS: Alanine Aminotransferase 17 U/L (4-35); Albumin Level 4.2 g/dL (3.5-5.1); Alkaline Phosphatase 111 U/L (38-126); Anion Gap 12 mmol/L (8-16); Aspartate Amino Transferase 29 U/L (14-36); Bilirubin,Total 0.5 mg/dL (0.2-1.3); Blood Urea Nitrogen 18 mg/dL (7-17); CRP 4.7 mg/dL (<1.0); Calcium 10.3 mg/dL (8.4-10.2); Carbon Dioxide 21 mmol/L (22-30); Chloride 106 mmol/L (98-107); Estimated CRCL calculation 30 ml/min; Estimated Glomerular Filt Rate 42; Glucose 97 mg/dL (65-110); Potassium 4.2 mmol/L (3.4-5.0); Sodium 139 mmol/L (137-145); Uric Acid 5.7 mg/dL (2.5-7.5)
[2021-05-12 15:55] LABS: Add Urine Microscopic? NO; Appearance Urine Clear (Clear); Bilirubin Urine Negative (Negative); Blood Urine Negative (Negative); Color Urine Straw (Yellow); Glucose Urine UA Negative (Negative); Ketones Urine Negative (Negative); Leukocyte Esterase Ur Negative LEU/UL (Negative); Nitrate Urine Negative (Negative); Protein Urine Negative (Negative); Specific Grav Ur 1.005 (1.001-1.035); Urobilinogen Urine Negative mg/dL (<2.0)
[2021-05-12 16:08] LABS: Erythrocyte Sedimentation Rate > 140 mm/hr (0-20)
--- NOTE | 2021-05-12 16:42 | ED.GENADULT ---
HPI - General Adult General Chief complaint: Extremity Injury, Upper Stated complaint: I have RA and I am in pain Time Seen by Provider: 05/12/21 14:39 Source: patient Mode of arrival: ambulatory Limitations: no limitations History of Present Illness HPI narrative: Patient with rheumatoid arthritis presents with chief complaint of swelling, pain and erythema to the right wrist and right great toe. Patient states that the pain began last night and interrupting her sleep. Patient reports that she has not contacted her barrow worker helper Dr. Garcia. Patient states that she no longer has medication for her pains besides Tylenol which did not help her discomfort. Patient reports that she used to be on nighttime baclofen for her pain but has been stopped. She states that her doctors have not been helping her with her pain. Related Data Home Medications Medication Instructions Recorded Confirmed mirtazapine 45 mg tablet See Rx Instructions PO DAILY 05/26/19 08/27/20 quetiapine 300 mg tablet 300 mg PO DAILY tablet 05/26/19 08/27/20 sertraline 100 mg tablet 100 mg PO DAILY 05/26/19 08/27/20 Allergies Allergy/AdvReac Type Severity Reaction Status Date / Time amoxicillin [From Augmentin] Allergy Mild Rash Verified 05/12/21 15:00 clavulanic acid Allergy Mild Rash Verified 05/12/21 15:00 [From Augmentin] Penicillins Allergy Mild rash Verified 05/12/21 15:00 Review of Systems Review of Systems: CONSTITUTIONAL: Denies fever, chills, or sweats. EYES: Denies visual changes, redness, or discharge. ENT: Denies rhinorrhea, congestion, sore throat, or otalgia. CARDIOVASCULAR: Denies chest pain, palpitations, or edema. RESPIRATORY: Denies cough or dyspnea. GASTROINTESTINAL: Denies abdominal pain, nausea, vomiting, or diarrhea. GENITOURINARY: Denies dysuria or hematuria. SKIN: Denies rash or itching. MUSCULOSKELETAL: Reports right wrist and great toe swelling and pain Denies back pain, myalgia, or joint pain NEUROLOGIC: Denies headache, numbness, dizziness, or weakness. PSYCHIATRIC: Denies anxiety or depression. [facility] Past Medical History Medical History (Updated 05/12/21 @ 21:23 by Ami Keller DO) Anxiety disorder, unspecified Arthritis, rheumatoid Bipolar disorder Cat scratch fever (10/2018) With cellulitis Chronic kidney disease, stage 3 Compression fracture of T7 vertebra Delayed union of fracture of humerus Emphysema lung Essential (primary) hypertension Frequent sinus infections GERD (gastroesophageal reflux disease) History of smoking 30 or more pack years Hyperthyroidism Osteoporosis Other hyperlipidemia Pancreatitis Peripheral arterial disease with history of revascularization Left ischemic foot with stent placed August 2020 Septic arthritis of wrist, left (08/2017) Vitamin B deficiency Surgical History Surgical History (Updated 05/12/21 @ 21:21 by Ami Keller DO) History of total replacement of right hip (01/2021) S/P shoulder surgery Status post open reduction with internal fixation of fracture Left elbow fracture Family History Family History Father Brain cancer Mother Family history of renal failure, Onset Age: 30 Grandparent Acute myocardial infarction, Onset Age: 72 Liver disease Sibling Pancreatitis Social History Social History Social History: Pt started smoking at 19 Smoking packs per day: 1.5 Smoking cigarettes per day: 30.0 Smoking status: Former smoker Tobacco type: cigarettes Second hand tobacco smoke exposure: Yes Alcohol intake: never Substance use: never Gender identity (if verbalized by the patient): Female Exam Narrative: GENERAL: Well-appearing, well-nourished. Non toxic in appearance. HEAD: Normocephalic, atraumatic. EYES: PERRLA and EOMI. CHEST: Clear to auscultation. No respiratory dist
--- NOTE | 2021-05-12 21:11 | PM.IMHP ---
H&P: HPI History of Present Illness Date/Time: 05/12/21 21:11 Chief Complaint: Right wrist pain and swelling Narrative: 56-year-old female with a past medical history of rheumatoid arthritis, emphysema, chronic kidney disease, peripheral vascular disease and osteoporosis who presented to the ER with right wrist pain and swelling. She reports pain and erythema of the right wrist. The pain started on the evening of the . The pain was so bad that she could not sleep and was throbbing in nature. The pain was severe in intensity. She only uses Tylenol at home and states that she does not get adequate pain control. Her pain has not improved despite the Tylenol. She has not had any fevers or chills. She denies any known injury to her wrist but does have a kid and the scratches in place with her. She has had a history of cat scratch fever with associated cellulitis of the right arm October 2018 and and septic arthritis of the left wrist in August 2017. She was also reporting some pain in her left great toe. She has not noticed any significant swelling of the area and no significant erythema. She thinks the toe pain is due to her usual arthritis. She thought that her wrist pain was also due to a flare of her rheumatoid arthritis. However in the ER her ESR was markedly elevated greater than 140 and her CRP was elevated to 4.7. Review of Systems Review of Systems: 12 systems were reviewed with pertinent positives and negatives per HPI. Except as documented in the HPI, all other systems were reviewed and are negative. [facility] Past Medical History Medical History (Updated 05/13/21 @ 08:56 by Ami Keller DO) Anxiety disorder, unspecified Arthritis, rheumatoid Bipolar disorder Cat scratch fever (10/2018) With cellulitis Chronic kidney disease, stage 3 Compression fracture of T7 vertebra Delayed union of fracture of humerus Emphysema lung Essential (primary) hypertension Frequent sinus infections GERD (gastroesophageal reflux disease) History of smoking 30 or more pack years Hyperthyroidism Osteoporosis Other hyperlipidemia Pancreatitis Peripheral arterial disease with history of revascularization Ischemia left foot due to thrombotic event August 2020 Septic arthritis of wrist, left (08/2017) Vitamin B deficiency Vitamin D deficiency Surgical History Surgical History (Updated 05/13/21 @ 08:56 by Ami Keller DO) History of thumb surgery Right thumb 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pen reduction with internal fixation of fracture Left forearm fracture Status post open reduction with internal fixation of fracture Left shoulder fracture Family History Family History Father Brain cancer Mother Family history of renal failure, Onset Age: 30 Grandparent Acute myocardial infarction, Onset Age: 72 Liver disease Sibling Pancreatitis Social History Social History (Updated 05/13/21 @ 08:53 by Ami Keller DO) Social History: She is . She has smoked between 1 pack to 1.5 packs of cigarettes per day for 35 years but quit smoking approximately December 2019. She denies any alcohol or illicit substance use. She is on disability due to her rheumatoid arthritis. Primary care physician: Dr. Ricco Fuller Code status: Full code Surrogate decision maker: Smoking packs per day: 1.5 Smoking cigarettes per day: 30.0 Years smoked: 30 Smoking pack-years: 45.00 Smoking status: Former smoker Tobacco type: cigarettes Second hand tobacco smoke exposure: Yes Alcohol intake: never Substance use: never Gender identity (if verbalized by the patient): Female Spiritual care concerns: No Meds Home Medications and Allergies Home Medications Medication Instructions Recorded Confirmed Type mirtazapin
[2021-05-12 21:49] VITALS: BP 97/54; PULSE 91; RESP 16; TEMP 36.4; O2SAT 97
[2021-05-12 21:59] LABS: Lactic Acid Reflex 0.7 mmol/L (0.7-2.1)
[2021-05-12 22:35] VITALS: BMI 15.3
[2021-05-12 22:42] VITALS: BP 137/58; PULSE 87; RESP 16; TEMP 36.2; O2SAT 100; BMI 15.7
--- NOTE | 2021-05-12 22:43 | ADMGEN ---
This patient, Yakelin Sher, was admitted to [facility] Surg Room 316-01. Patient/family oriented to hospital policies and general routines including ID bracelet, bed and alarms, visiting hours, pain management, procedures, bathroom and other care routines, personal items, smoking policy, room service/diet, and visiting hours. Information on how to activate the Rapid Response Team has been discussed. Patient/Family are encouraged to report perceived risks to care and to ask questions if they do not understand what they are told or what they should do.
[2021-05-13] MEDS: HYDROcodone/acetaminophen (*CRX) 5-325 MG TABLET 1 TAB PO ×3 (01:38→14:12)
[2021-05-13 05:29] VITALS: BP 109/55; PULSE 85; RESP 16; TEMP 36.2; O2SAT 98
[2021-05-13 09:02] LABS: Hematocrit 28.7 % (37.0-47.0); Hemoglobin 9.4 g/dL (12.0-15.0); Mean Corpuscular HGB Conc 32.8 g/dl (32-36); Mean Corpuscular Hemoglobin 32.6 pg (26-34); Mean Corpuscular Volume 99.7 fl (80-100); Mean Platelet Volume 9.3 fl (7.4-10.4); Platelet Count Result 167 k/mm3 (150-375); Red Blood Count 2.88 M/mm3 (4.2-5.4); Red Cell Distribution Width 15.1 % (11.5-14.5); White Blood Count 5.2 K/mm3 (4.5-10.0)
[2021-05-13 09:16] VITALS: O2SAT 95
[2021-05-13 09:48] LABS: Thyroid Stimulating Hormone 0.163 uIU/mL (0.465-4.680)
--- NOTE | 2021-05-13 11:36 | PCDIET ---
Dietitian Screen for BMI 15.8. Spoke with patient today, states states weight has been stable. Discussed diet supplements, patient refused. She is currently on a regular diet. No breakfast was eaten today, she states he was going to bring her in a few food items. No further nutritional interventions needed.
[2021-05-13] MEDS: FOLIC ACID 1 MG TABLET PO (12:23)
[2021-05-13] MEDS: QUEtiapine FUMARATE 100 MG TABLET 300 MG PO ×2 (12:23→21:13)
[2021-05-13] MEDS: ROSUVASTATIN 10 MG TABLET 20 MG PO (12:23)
[2021-05-13] MEDS: CLOPIDOGREL BISULFATE 75 MG TABLET PO (12:25)
[2021-05-13] MEDS: SERTRALINE HCL 50 MG TABLET 100 MG PO (12:25)
[2021-05-13] MEDS: BACLOFEN 10 MG TABLET PO ×2 (12:25→16:54)
--- NOTE | 2021-05-13 13:38 | PM.CNOR ---
Assessment and Plan Assessment and plan (1) Rheumatoid arthritis involving both hands with positive rheumatoid factor: Code(s): M05.741 - Rheumatoid arthritis with rheumatoid factor of right hand without organ or systems involvement; M05.742 - Rheumatoid arthritis with rheumatoid factor of left hand without organ or systems involvement Status: Acute Assessment and Plan: New patient evaluation for chief complaint right wrist pain, right hallux pain. History, physical exam and radiographs reviewed with the patient. Patient history seropositive rheumatoid arthritis. On exam appears to be rheumatologic flare up. Radiographs show degenerative changes and osteoporosis. Normal white count. Elevated CRP and sed rate but no other sign of infection. Discussed the condition, nature, etiology and course of natural history with the patient. Treatment options including surgical and nonoperative treatment were reviewed. Risks and benefits of each as well as alternatives reviewed. The patient's questions were answered. Conservative treatment ice, compression and elevation. Conservative treatment at this time. If no improvement may consider aspiration. (2) Acute wrist pain: Qualifiers: Laterality: right Qualified Code(s): M25.531 - Pain in right wrist Code(s): M25.539 - Pain in unspecified wrist Status: Acute (3) Pain of right great toe: Code(s): M79.674 - Pain in right toe(s) Status: Acute History of Present Illness HPI Consult date: 05/13/21 Requesting physician: Renato Smith MD Chief complaint: Inflammed wrist joint R/O septic joint Narrative: 56-year-old woman with a known history of rheumatoid arthritis admitted through the emergency room yesterday with right wrist pain and swelling. Right hallux pain. Patient states her toe began hurting yesterday. No known injury. Wrist has been a problem off and on for several years. Patient knows she has rheumatoid arthritis. She has had previous surgery bilateral wrists and hands. Redness and swelling over the past 2 to 3 days. Patient presented to the emergency room. Plans Examiner recommended admit and rule out infection. Patient states that her wrist feels better today although still painful if she tries to move it. Denies fever or chills. Review of Systems Constitutional: Constitutional: Denies fever(s) Eyes: Eyes: Denies blurry vision ENT: Reports Normal hearing present Cardiovascular: Cardiovascular: Denies chest pain, Denies dyspnea and Reports other (History of skin and color changes to the left hallux 3 months ago. ) Respiratory: Respiratory: Denies dyspnea and Denies wheezing Gastrointestinal: Gastrointestinal: Denies abdominal pain Genitourinary: Genitourinary: Denies urinary urgency Musculoskeletal: Musculoskeletal: Reports as per HPI, Denies numbness and Reports stiffness (Bilateral hands) Integumentary/Breasts: Skin/Breast: Denies changing lesions and Denies sores Neurologic: Reports Normal hearing present, Denies behavioral changes, Denies confusion, Denies numbness and Denies convulsions Psychiatric: Psychiatric: Denies behavioral changes, Denies confusion and Denies hallucinations Endocrine: Endocrine: Denies heat intolerance Hematologic/Lymphatic: Hematologic/Lymphatic: Denies easy bleeding Allergic/Immunologic: Allergic/Immunologic: Denies wheezing [facility] Past Medical History Medical History (Updated 05/13/21 @ 13:44 by Spencer Chambers MD) Anxiety disorder, unspecified Arthritis, rheumatoid Bipolar disorder Cat scratch fever (10/2018) With cellulitis Chronic kidney disease, stage 3 Compression fracture of T7 vertebra Delayed union of fracture of humerus Emphysema lung Essential (primary) hypertension Frequent sinus infections GERD (gastroesophageal reflux disease) History of smoking 30 or more pack years Hyperthyroidism Osteoporosis Other hyperlipidemia Pancreatitis Peripheral arterial
[2021-05-13 14:43] VITALS: BP 112/69; PULSE 93; RESP 14; TEMP 36.6; O2SAT 97
--- NOTE | 2021-05-13 15:26 | PM.IMPN ---
Progress Note: A&P Assessment and Plan (1) Inflammation around joint: Code(s): M77.9 - Enthesopathy, unspecified Status: Acute (2) Acute wrist pain: Qualifiers: Laterality: right Qualified Code(s): M25.531 - Pain in right wrist Code(s): M25.539 - Pain in unspecified wrist Status: Acute (3) Pain of right great toe: Code(s): M79.674 - Pain in right toe(s) Status: Acute Additional Plan # Right wrist pain due to right 1st carpometacarpal joint arthritis rheumatoid arthritis related versus septic arthritis. Normal WBC count 9 patient afebrile however ESR and CRP are quite elevated. Mediation Commissioner suggested she get admitted and get aspirated orthopedic surgery has been consulted and await his recommendations. Holding off on any antibiotics currently until aspiration is done. Uric acid has been ordered to check for possible gouty arthritis # History of rheumatoid arthritis not on DM ROSE. She does not follow-up agricultural service technician as well. She has elevated ESR and CRP and several arthritis joint she would need to see a agricultural service technician for further articular damage prevention due to her underlying rheumatoid arthritis. # hyperlipidemia on rosuvastatin # at anxiety depression bipolar disorder home medication # chronic kidney disease stage 3 # lung emphysema # hypertension # hyperthyroidism # osteoporosis # peripheral vascular disease with history of revascularization # vitamin-B deficiency # vitamin-D deficiency # right hip replacement # status post left shoulder surgery Subjective Date/time seen: 05/13/21 15:26 Interval history: Right wrist feels better today has been hurting worse since yesterday but she always has pain all over joints due to her rheumatoid arthritis. She does not see any agricultural service technician currently. Review of Systems Review of Systems: All systems reviewed & are unremarkable except as noted in HPI and below (HPI) Exam Narrative: General: No acute distress, thin body habitus HEENT: Mucous membranes are tacky, edentulous in upper jaw, multiple missing teeth in lower jaw, head is normocephalic atraumatic Respiratory: Clear to auscultation bilaterally, no increased work of breathing Cardiovascular: Regular rate, regular rhythm Gastrointestinal: Soft, nontender, nondistended Skin: Generalized pallor, non jaundice Musculoskeletal: Generalized muscle wasting, arthritic changes noted to bilateral PIP joints, Right wrist examination swollen 1st carpometacarpal joint with some tenderness along with warmth Several other joints with chronic arthritic changes noted Neurological: Alert orient x4, speech is clear but slow, no gross motor deficits noted on limited exam Psychiatric: Appropriate mood and affect, pleasant and cooperative : Deferred Hematologic/lymphatic: No significant axillary lymphadenopathy, no petechiae, no bruising Objective Data Vital Signs Vital Signs: Vital Signs - 24 hr 05/12/21 21:49 05/12/21 22:42 05/13/21 05:29 Temperature 97.5 F L 97.2 F L 97.2 F L Pulse Rate 91 87 85 Respiratory Rate 16 16 16 Blood Pressure 97/54 L 137/58 L 109/55 L Pulse Oximetry 97 100 98 05/13/21 09:16 05/13/21 14:43 Temperature 97.9 F Pulse Rate 93 Respiratory Rate 14 Blood Pressure 112/69 Pulse Oximetry 95 97 Intake/Output Intake/Output: Intake & Output 05/10/21 05/11/21 05/12/21 05/13/21 23:59 23:59 23:59 23:59 Intake Total 560 Balance 560 Meds/Results Medications: Active Medications Generic Name Dose Route Start Last Admin Trade Name Freq PRN Reason Stop Dose Admin Hydrocodone Bitart/Acetaminophen 1 tab 05/12/21 20:39 05/13/21 14:12 Hydrocodone/Acetaminophen (*Crx) 5-325 Mg Tablet PO 1 tab Q4H PRN Administration Pain Rated 4-6 Baclofen 10 mg 05/13/21 09:00 05/13/21 12:25 Baclofen 10 Mg Tablet PO 10 mg BID DARRIN Administration Clopidogrel Bisulfate 75 mg 05/13/21 09:00 05/13/21 12:25 C
[2021-05-13 20:00] VITALS: PULSE 94; RESP 18; O2SAT 99
[2021-05-13 21:05] VITALS: O2SAT 96
[2021-05-13] MEDS: MIRTAZAPINE 15 MG TABLET 45 MG PO (21:12)
[2021-05-13 21:33] VITALS: BP 96/49; PULSE 94; RESP 18; TEMP 37.1; O2SAT 99
[2021-05-14 05:39] VITALS: BP 100/60; PULSE 91; RESP 18; TEMP 37; O2SAT 98
[2021-05-14] MEDS: QUEtiapine FUMARATE 100 MG TABLET 300 MG PO (09:29)
[2021-05-14] MEDS: FOLIC ACID 1 MG TABLET PO (09:30)
[2021-05-14] MEDS: SERTRALINE HCL 50 MG TABLET 100 MG PO (09:30)
[2021-05-14] MEDS: CLOPIDOGREL BISULFATE 75 MG TABLET PO (09:30)
[2021-05-14] MEDS: BACLOFEN 10 MG TABLET PO ×2 (09:30→16:24)
[2021-05-14] MEDS: HYDROcodone/acetaminophen (*CRX) 5-325 MG TABLET 1 TAB PO ×2 (09:30→16:24)
[2021-05-14] MEDS: ROSUVASTATIN 10 MG TABLET 20 MG PO (09:30)
--- NOTE | 2021-05-14 15:26 | PM.DS ---
DS: Admitting Diagnosis Discharge Date 05/14/2021 Admitting Diagnosis Right wrist pain and swelling DS: Discharge Diagnosis Discharge Diagnosis (1) Inflammation around joint: Code(s): M77.9 - Enthesopathy, unspecified Status: Acute (2) Acute wrist pain: Qualifiers: Laterality: right Qualified Code(s): M25.531 - Pain in right wrist Code(s): M25.539 - Pain in unspecified wrist Status: Acute (3) Pain of right great toe: Code(s): M79.674 - Pain in right toe(s) Status: Acute DS: Summary Hospital Course Reason for hospitalization: Chief Complaint: Right wrist pain and swelling Narrative: 56-year-old female with a past medical history of rheumatoid arthritis, emphysema, chronic kidney disease, peripheral vascular disease and osteoporosis who presented to the ER with right wrist pain and swelling. She reports pain and erythema of the right wrist. The pain started on the evening of the . The pain was so bad that she could not sleep and was throbbing in nature. The pain was severe in intensity. She only uses Tylenol at home and states that she does not get adequate pain control. Her pain has not improved despite the Tylenol. She has not had any fevers or chills. She denies any known injury to her wrist but does have a kid and the scratches in place with her. She has had a history of cat scratch fever with associated cellulitis of the right arm October 2018 and and septic arthritis of the left wrist in August 2017. She was also reporting some pain in her left great toe. She has not noticed any significant swelling of the area and no significant erythema. She thinks the toe pain is due to her usual arthritis. She thought that her wrist pain was also due to a flare of her rheumatoid arthritis. However in the ER her ESR was markedly elevated greater than 140 and her CRP was elevated to 4.7. Hospital Course: # Right wrist pain due to right 1st carpometacarpal joint arthritis rheumatoid arthritis related versus septic arthritis. Normal WBC count 9 patient afebrile however ESR and CRP are quite elevated. Manager Area suggested she get admitted and get aspirated orthopedic surgery has been consulted and await his recommendations. Holding off on any antibiotics currently until aspiration is done. Uric acid has been ordered to check for possible gouty arthritis # History of rheumatoid arthritis not on DM ROSE. She does not follow-up professor of archaeology as well. She has elevated ESR and CRP and several arthritis joint she would need to see a professor of archaeology for further articular damage prevention due to her underlying rheumatoid arthritis. # hyperlipidemia on rosuvastatin # at anxiety depression bipolar disorder home medication # chronic kidney disease stage 3 # lung emphysema # hypertension # hyperthyroidism # osteoporosis # peripheral vascular disease with history of revascularization # vitamin-B deficiency # vitamin-D deficiency # right hip replacement # status post left shoulder surgery patient remains clinically stable seen by orthopedic surgeon does not suspect septic joint, most likely patient has rheumatoid arthritis, is to follow-up with professor of archaeology as soon as possible to prevent further deterioration of her joints patient verbalized and patient is given information for local professor of archaeology. Patient to call Dr. Landis Manager Area for as appointment as soon as possible, , patient to follow up with her primary care provider as soon as possible, patient is instructed if any symptoms worsen to go to nearest ER. Status at Discharge Functional status at discharge: independent ambulation Overall status at discharge: patient is back to baseline Time Spent with Patient Time attestation: Total time spent providing and/or coordinating discharge services: Time spent: Greater than 30 minutes DS: Data Data Completed and Pending Labs on day of discharge: Preliminary micro results at d
[2021-05-14 15:49] VITALS: BP 79/48; PULSE 88; RESP 18; TEMP 36.7; O2SAT 98
--- NOTE | 2021-05-14 17:55 | PC.NURSE ---
I went to discuss discharge order with pt approximately 1430; she appeared overly tired and head was nodding/drifting off to sleep easily. I asked pt if she had taken anything; she denied taking anything. Pt stated pain, and I told her I would not given her current drowsiness. Later at 1530, pt wide awake, having no trouble staying awake. Observed her again 15 minutes later, pt still fully alert. Gave pt norco for pain for wrist. Printed discharge paperwork 1613. Pt signed, IV removed. At 1740, I was checking pt charts and noticed pt BP charted at 79/48. I called feliciano and asked what time this vital was from. She stated 1400 vitals that she had taken at 1544 but not charted until sometime after 1600. I asked her to check pt BP manually as previous were done with automatic cuff. Aide to check BP but pt had already left without notifying us (fully ready to be discharged but had not notified us her ride was her to pick her up). According to community health consultant, pt walked out with her steadily. Called who stated due to her small stature her BP was likely okay; no cause for concern at this time.
== END 2021-05-14 17:45 | disposition home or self-care (01) ==
LOC: ANHED 20:27 → ANH3MEDSUR 05-13 12:49
PROVIDERS: Physician Assistant; Admitting Provider Internal Medicine; Emergency Provider Emergency Medicine; PCP Internal Medicine; Visit Provider Family Medicine
DX: M05.741 Rheumatoid arthritis with rheumatoid factor of right hand without organ or systems involvement (principal); M05.742 Rheumatoid arthritis with rheumatoid factor of left hand without organ or systems involvement; M77.9 Enthesopathy, unspecified; M06.9 Rheumatoid arthritis, unspecified; M81.0 Age-related osteoporosis without current pathological fracture; M79.674 Pain in right toe(s); E53.9 Vitamin B deficiency, unspecified; E55.9 Vitamin D deficiency, unspecified; E05.90 Thyrotoxicosis, unspecified without thyrotoxic crisis or storm; E78.5 Hyperlipidemia, unspecified; F41.8 Other specified anxiety disorders; I12.9 Hypertensive chronic kidney disease with stage 1 through stage 4 chronic kidney disease, or unspecified chronic kidney disease; I73.9 Peripheral vascular disease, unspecified; J43.9 Emphysema, unspecified; N18.30 Chronic kidney disease, stage 3 unspecified; Z96.641 Presence of right artificial hip joint; Z87.891 Personal history of nicotine dependence
CPT/HCPCS: 36415; 73110; 73630; 80053; 81003; 83605; 84443; 84550; 85025; 85027; 85652; 86140; 87040; 99285; A9270; G0378

== ENCOUNTER 2021-06-03 16:52 | Emergency (ER) | payer MEDICARE, SELFPAY ==
[2021-06-03 17:22] VITALS: BP 136/73; PULSE 109; RESP 16; TEMP 36.3; O2SAT 100
--- NOTE | 2021-06-03 22:02 | ED.GENADULT ---
HPI - General Adult General Chief complaint: Unspecified Stated complaint: pain for RA Time Seen by Provider: 06/03/21 22:01 Source: patient Mode of arrival: ambulatory Limitations: no limitations History of Present Illness HPI narrative: Patient is a 56-year-old female complaining of bilateral hand and bilateral knee pain that is been going on for a while but states it was worse tonight. Patient states she has been to multiple ERs for the same complaint. Denies any chest pain, shortness of breath, abdominal pain, nausea, vomiting, fever or chills. Related Data Home Medications Medication Instructions Recorded Confirmed mirtazapine 45 mg tablet See Rx Instructions PO DAILY 05/26/19 05/12/21 quetiapine 300 mg tablet 300 mg PO DAILY tablet 05/26/19 05/12/21 sertraline 100 mg tablet 100 mg PO DAILY 05/26/19 05/12/21 alendronate 70 mg PO WEEKLY 05/12/21 05/12/21 baclofen 10 mg PO BID 05/12/21 05/12/21 clopidogrel 75 mg PO DAILY 05/12/21 05/12/21 ibandronate 150 mg PO DAILY 05/12/21 05/13/21 quetiapine 300 mg PO HS 05/13/21 05/13/21 Allergies Allergy/AdvReac Type Severity Reaction Status Date / Time amoxicillin [From Augmentin] Allergy Mild Rash Verified 05/12/21 15:00 clavulanic acid Allergy Mild Rash Verified 05/12/21 15:00 [From Augmentin] Penicillins Allergy Mild rash Verified 05/12/21 15:00 Review of Systems Review of Systems: All systems reviewed & are unremarkable except as noted in HPI and below Constitutional: Constitutional: Denies body ache(s), Denies chills, Denies excessive sweating, Denies fatigue, Denies fever(s), Denies headache(s), Denies lethargy, Denies malaise, Denies weakness and Denies weight loss Eyes: Eyes: Denies blurry vision, Denies change in vision and Denies loss of vision ENT: Denies dizziness, Denies ear discharge, Denies headache(s), Denies lip swelling, Denies epistaxis, Denies nasal congestion, Denies neck pain, Denies throat swelling and Denies tongue swelling Cardiovascular: Cardiovascular: Denies chest pain, Denies chest pain at rest, Denies chest pain with activity, Denies diaphoresis, Denies rapid heart rate, Denies edema, Denies irregular heart rhythm, Denies lightheadedness, Denies palpitations, Denies dyspnea and Denies dyspnea on exertion Respiratory: Respiratory: Denies chest congestion, Denies cough, Denies hemoptysis, Denies dyspnea and Denies dyspnea on exertion Gastrointestinal: Gastrointestinal: Denies abdominal pain, Denies melena, Denies hematochezia, Denies diarrhea, Denies nausea, Denies vomiting and Denies hematemesis Musculoskeletal: Musculoskeletal: Denies abnormal gait, Denies deformity, Denies joint swelling, Denies limited range of motion, Denies neck pain and Denies numbness Neurologic: Denies Abnormal speech present, Denies abnormal gait, Denies confusion, Denies dizziness, Denies headache(s), Denies focal weakness, Denies loss of vision, Denies numbness, Denies Other visual disturbances, Denies Sensory deficit (Neuro) and Denies weakness Psychiatric: Psychiatric: Denies confusion, Denies depression, Denies auditory hallucinations, Denies homicidal ideation and Denies suicidal ideation Endocrine: Endocrine: Denies cold intolerance, Denies excessive sweating, Denies fatigue, Denies heat intolerance and Denies palpitations Hematologic/Lymphatic: Hematologic/Lymphatic: Denies easy bleeding and Denies easy bruising Allergic/Immunologic: Allergic/Immunologic: Denies lip swelling, Denies throat swelling and Denies tongue swelling PMFSH Past Medical History Medical History Anxiety disorder, unspecified Arthritis, rheumatoid Bipolar disorder Cat scratch fever (10/2018) With cellulitis Chronic kidney disease, stage 3 Compression fracture of T7 vertebra Delayed union of fracture of humerus Emphysema lung Essential (primary) hypertension Frequent sinus infections GERD (gastroesophageal reflux disease) History
[2021-06-03] MEDS: HYDROcodone/acetaminophen (*CRX) 5-325 MG TABLET 1 TAB PO (22:38)
[2021-06-03 23:14] VITALS: BP 129/60; PULSE 108; RESP 16; O2SAT 97
== END 2021-06-03 23:15 | disposition home or self-care (01) ==
PROVIDERS: Emergency Provider Emergency Medicine; PCP Internal Medicine
DX: M06.9 Rheumatoid arthritis, unspecified (principal)
CPT/HCPCS: 96372; 99283; A9270; J1100

== ENCOUNTER 2021-12-20 15:22 | Emergency (ER) | payer MEDICARE, SELFPAY ==
[2021-12-20 15:40] VITALS: BP 124/63; PULSE 91; RESP 20; TEMP 36.6; O2SAT 95
--- NOTE | 2021-12-20 15:41 | ED.SKABFB ---
HPI - Skin/Abscess/Foreign Bdy General Chief complaint: Skin/Abscess/Foreign Body Stated complaint: Rash Time Seen by Provider: 12/20/21 15:41 Source: patient, RN notes reviewed and old records reviewed Mode of arrival: ambulatory Limitations: no limitations History of Present Illness HPI narrative: 56-year-old female presents to the [facility] with right forearm rash for the last 3 to 4 days. Was doing yard work when this developed a day later. Has been applying calamine with no relief. MD complaint: rash Related Data Home Medications Medication Instructions Recorded Confirmed mirtazapine 45 mg tablet See Rx Instructions PO DAILY 05/26/19 05/12/21 quetiapine 300 mg tablet 300 mg PO DAILY 05/26/19 05/12/21 sertraline 100 mg tablet 100 mg PO DAILY 05/26/19 05/12/21 alendronate 70 mg tablet 70 mg PO WEEKLY 05/12/21 05/12/21 baclofen 10 mg tablet 10 mg PO BID 05/12/21 05/12/21 clopidogrel 75 mg tablet 75 mg PO DAILY 05/12/21 05/12/21 ibandronate 150 mg tablet 150 mg PO DAILY 05/12/21 05/13/21 quetiapine 300 mg tablet 300 mg PO HS 05/13/21 05/13/21 cyanocobalamin (vitamin B-12) tablet 12/20/21 1,000 mcg tablet levetiracetam 500 mg tablet tablet PO 12/20/21 methotrexate sodium 2.5 mg tablet tablet 12/20/21 thiamine HCl (vitamin B1) 100 mg tablet 12/20/21 tablet umeclidinium 62.5 mcg-vilanterol ea inhalation 12/20/21 25 mcg/actuation powdr for inhalation (Anoro Ellipta) Allergies Allergy/AdvReac Type Severity Reaction Status Date / Time amoxicillin [From Augmentin] Allergy Mild Rash Verified 05/12/21 15:00 clavulanic acid Allergy Mild Rash Verified 05/12/21 15:00 [From Augmentin] Penicillins Allergy Mild rash Verified 05/12/21 15:00 Review of Systems Review of Systems: All systems reviewed & are unremarkable except as noted in HPI and below Constitutional: Constitutional: Reports no additional constitutional complaints, Denies chills, Denies fever(s), Denies headache(s) and Denies weakness Eyes: Eyes: Reports no additional eye complaints and Denies change in vision ENT: Reports system reviewed and no additional complaints, except as documented, Denies dysphagia, Denies dizziness, Denies headache(s), Denies nasal congestion and Denies sore throat Cardiovascular: Cardiovascular: Reports no additional cardiovascular complaints, Denies chest pain, Denies syncope and Denies dyspnea Respiratory: Respiratory: Reports no additional respiratory complaints, Denies chest congestion, Denies cough, Denies dyspnea and Denies wheezing Gastrointestinal: Gastrointestinal: Denies dysphagia Musculoskeletal: Musculoskeletal: Reports no additional musculoskeletal complaints and Denies numbness Integumentary/Breasts: Skin/Breast: Reports as per HPI and Reports rash (Right forearm) Neurologic: Reports system reviewed and no additional complaints, except as documented, Denies dizziness, Denies syncope, Denies headache(s), Denies focal weakness, Denies numbness and Denies weakness Psychiatric: Psychiatric: Reports no additional psychiatric complaints Allergic/Immunologic: Allergic/Immunologic: Reports no additional allergic/immunologic complaints and Denies wheezing PMFSH Past Medical History Medical History Anxiety disorder, unspecified Arthritis, rheumatoid Bipolar disorder Cat scratch fever (10/2018) With cellulitis Chronic kidney disease, stage 3 Compression fracture of T7 vertebra Delayed union of fracture of humerus Emphysema lung Essential (primary) hypertension Frequent sinus infections GERD (gastroesophageal reflux disease) History of smoking 30 or more pack years Hyperthyroidism Osteoporosis Other hyperlipidemia Pancreatitis Peripheral arterial disease with history of revascularization 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
== END 2021-12-20 15:50 | disposition home or self-care (01) ==
PROVIDERS: Emergency Provider Nurse Practitioner; PCP Internal Medicine
DX: L25.9 Unspecified contact dermatitis, unspecified cause (principal); Z87.891 Personal history of nicotine dependence; I12.9 Hypertensive chronic kidney disease with stage 1 through stage 4 chronic kidney disease, or unspecified chronic kidney disease; N18.30 Chronic kidney disease, stage 3 unspecified; K21.9 Gastro-esophageal reflux disease without esophagitis; E05.90 Thyrotoxicosis, unspecified without thyrotoxic crisis or storm; M81.0 Age-related osteoporosis without current pathological fracture; M05.9 Rheumatoid arthritis with rheumatoid factor, unspecified; Z96.641 Presence of right artificial hip joint; I73.9 Peripheral vascular disease, unspecified; F41.9 Anxiety disorder, unspecified; F31.9 Bipolar disorder, unspecified
CPT/HCPCS: 99213; G0463

== ENCOUNTER 2021-12-21 15:39 | Emergency (ER) | payer MEDICARE, SELFPAY ==
[2021-12-21 15:44] VITALS: BP 137/95; PULSE 88; RESP 18; TEMP 36.8; O2SAT 98
[2021-12-21] MEDS: TRIAMCINOLONE ACET INJ 40 MG/ML VIAL 50 MG IM (16:13)
--- NOTE | 2021-12-21 16:15 | ED.GENADULT ---
HPI - General Adult General Chief complaint: Skin/Abscess/Foreign Body Stated complaint: Poison Romelia Time Seen by Provider: 12/21/21 15:46 History of Present Illness HPI narrative: 56-year-old female presented to the emergency department for evaluation of worsening symptoms associated with poison romelia dermatitis. Patient was exposed to poison romelia a few days ago while she was working in her yard. Patient did have follow-up with urgent care yesterday and was a started on 20 mg of prednisone. Patient states she has been taking the prednisone but continues to have worsening symptoms. Patient has also been take Benadryl for itching. Patient is seeking additional symptom relief Related Data Home Medications Medication Instructions Recorded Confirmed mirtazapine 45 mg tablet See Rx Instructions PO DAILY 05/26/19 05/12/21 quetiapine 300 mg tablet 300 mg PO DAILY 05/26/19 05/12/21 sertraline 100 mg tablet 100 mg PO DAILY 05/26/19 05/12/21 alendronate 70 mg tablet 70 mg PO WEEKLY 05/12/21 05/12/21 baclofen 10 mg tablet 10 mg PO BID 05/12/21 05/12/21 clopidogrel 75 mg tablet 75 mg PO DAILY 05/12/21 05/12/21 ibandronate 150 mg tablet 150 mg PO DAILY 05/12/21 05/13/21 quetiapine 300 mg tablet 300 mg PO HS 05/13/21 05/13/21 cyanocobalamin (vitamin B-12) tablet 12/20/21 1,000 mcg tablet levetiracetam 500 mg tablet tablet PO 12/20/21 methotrexate sodium 2.5 mg tablet tablet 12/20/21 thiamine HCl (vitamin B1) 100 mg tablet 12/20/21 tablet umeclidinium 62.5 mcg-vilanterol ea inhalation 12/20/21 25 mcg/actuation powdr for inhalation (Anoro Ellipta) Allergies Allergy/AdvReac Type Severity Reaction Status Date / Time amoxicillin [From Augmentin] Allergy Mild Rash Verified 05/12/21 15:00 clavulanic acid Allergy Mild Rash Verified 05/12/21 15:00 [From Augmentin] Penicillins Allergy Mild rash Verified 05/12/21 15:00 Review of Systems Review of Systems: CONSTITUTIONAL: Denies fever, chills, or sweats. EYES: Denies visual changes, redness, or discharge. ENT: Denies rhinorrhea, congestion, sore throat, or otalgia. CARDIOVASCULAR: Denies chest pain, palpitations, or edema. RESPIRATORY: Denies cough or dyspnea. GASTROINTESTINAL: Denies abdominal pain, nausea, vomiting, or diarrhea. GENITOURINARY: Denies dysuria or hematuria. SKIN: Worsening rash and itching MUSCULOSKELETAL: Denies back pain, joint pain, or myalgia. NEUROLOGIC: Denies headache, numbness, or weakness. 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8/2017) Vitamin B deficiency Vitamin D deficiency Surgical History Surgical History History of thumb surgery Right thumb 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pen reduction with internal fixation of fracture Left forearm fracture Status post open reduction with internal fixation of fracture Left shoulder fracture Family History Family History Father Brain cancer Mother Family history of renal failure, Onset Age: 30 Grandparent Acute myocardial infarction, Onset Age: 72 Liver disease
== END 2021-12-21 16:26 | disposition home or self-care (01) ==
PROVIDERS: Emergency Provider Emergency Medicine; PCP Internal Medicine
DX: L23.7 Allergic contact dermatitis due to plants, except food (principal); I12.9 Hypertensive chronic kidney disease with stage 1 through stage 4 chronic kidney disease, or unspecified chronic kidney disease; N18.30 Chronic kidney disease, stage 3 unspecified; J43.9 Emphysema, unspecified; I73.9 Peripheral vascular disease, unspecified; M05.842 Other rheumatoid arthritis with rheumatoid factor of left hand; M05.841 Other rheumatoid arthritis with rheumatoid factor of right hand; E53.9 Vitamin B deficiency, unspecified; K21.9 Gastro-esophageal reflux disease without esophagitis; E55.9 Vitamin D deficiency, unspecified; E05.90 Thyrotoxicosis, unspecified without thyrotoxic crisis or storm; F41.9 Anxiety disorder, unspecified; Z96.641 Presence of right artificial hip joint; Z87.891 Personal history of nicotine dependence
CPT/HCPCS: 96372; 99283; J3301

== ENCOUNTER 2022-01-03 17:10 | Emergency (ER) | payer MEDICARE, SELFPAY ==
--- NOTE | 2022-01-03 17:13 | ED.URI ---
HPI - URI/Sore Throat General Chief Complaint: Upper Respiratory Infection Stated Complaint: Sore Throat Time Seen by Provider: 01/03/22 17:12 Source: patient Mode of arrival: ambulatory Limitations: no limitations History of Present Illness HPI Narrative: Ms. Sher is a 56-year-old female patient presenting to the clinic today with complaints of a sore throat x3 days She reports she has been having difficulty with eating and swallowing foods due to the pain. She denies any fever or chills. She denies any known exposure to anyone with COVID, flu, or strep. MD elicited complaint: sore throat and other (Mouth pain) Related Data Home Medications Medication Instructions Recorded Confirmed mirtazapine 45 mg tablet See Rx Instructions PO DAILY 05/26/19 05/12/21 quetiapine 300 mg tablet 300 mg PO DAILY 05/26/19 05/12/21 sertraline 100 mg tablet 100 mg PO DAILY 05/26/19 05/12/21 alendronate 70 mg tablet 70 mg PO WEEKLY 05/12/21 05/12/21 baclofen 10 mg tablet 10 mg PO BID 05/12/21 05/12/21 clopidogrel 75 mg tablet 75 mg PO DAILY 05/12/21 05/12/21 ibandronate 150 mg tablet 150 mg PO DAILY 05/12/21 05/13/21 quetiapine 300 mg tablet 300 mg PO HS 05/13/21 05/13/21 cyanocobalamin (vitamin B-12) tablet 12/20/21 1,000 mcg tablet levetiracetam 500 mg tablet tablet PO 12/20/21 methotrexate sodium 2.5 mg tablet tablet 12/20/21 thiamine HCl (vitamin B1) 100 mg tablet 12/20/21 tablet umeclidinium 62.5 mcg-vilanterol ea inhalation 12/20/21 25 mcg/actuation powdr for inhalation (Anoro Ellipta) albuterol sulfate 90 mcg/actuation inh inhalation 01/03/22 aerosol inhaler Allergies Allergy/AdvReac Type Severity Reaction Status Date / Time amoxicillin [From Augmentin] Allergy Mild Rash Verified 05/12/21 15:00 clavulanic acid Allergy Mild Rash Verified 05/12/21 15:00 [From Augmentin] Penicillins Allergy Mild rash Verified 05/12/21 15:00 Review of Systems Review of Systems: Pertinent positives per HPI. Patient denies any fever, chills, rash, headache, visual changes, dizziness, cough, shortness of breath, chest pain, palpitations, nausea, vomiting, diarrhea, constipation, abdominal pain, or any urinary issues. 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8/2017) Vitamin B deficiency Vitamin D deficiency Surgical History Surgical History History of thumb surgery Right thumb 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pen reduction with internal fixation of fracture Left forearm fracture Status post open reduction with internal fixation of fracture Left shoulder fracture Family History Family History Father Brain cancer Mother Family history of renal failure, Onset Age: 30 Grandparent Acute myocardial infarction, Onset Age: 72 Liver disease Sibling Pancreatitis Social History Social History Social History: She is . She has smoked between 1 pack to 1.5 packs of cigarettes per day for 35 years but yuliya
[2022-01-03 17:21] VITALS: BP 121/60; PULSE 109; RESP 16; TEMP 37.2; O2SAT 97
== END 2022-01-03 17:45 | disposition home or self-care (01) ==
PROVIDERS: Emergency Provider Nurse Practitioner Family
DX: K12.0 Recurrent oral aphthae (principal); Z87.891 Personal history of nicotine dependence; I12.9 Hypertensive chronic kidney disease with stage 1 through stage 4 chronic kidney disease, or unspecified chronic kidney disease; N18.30 Chronic kidney disease, stage 3 unspecified; K21.9 Gastro-esophageal reflux disease without esophagitis; E05.90 Thyrotoxicosis, unspecified without thyrotoxic crisis or storm; M81.0 Age-related osteoporosis without current pathological fracture; E78.49 Other hyperlipidemia; I73.9 Peripheral vascular disease, unspecified; M05.9 Rheumatoid arthritis with rheumatoid factor, unspecified; E53.9 Vitamin B deficiency, unspecified; E55.9 Vitamin D deficiency, unspecified; J43.9 Emphysema, unspecified; F31.9 Bipolar disorder, unspecified; F41.9 Anxiety disorder, unspecified; Z96.641 Presence of right artificial hip joint
CPT/HCPCS: 99211; G0463

== ENCOUNTER 2022-04-22 18:00 | Emergency (ER) | payer MEDICARE, SELFPAY ==
--- NOTE | ~2022-04-22 | XR_ITS ---
EXAMINATION: XR hand LT min 3V, XR hand RT min 3V DATE: 04/23/2022 00:58 INDICATION: Rheumatoid arthritis flare TECHNIQUE: 1. Posteroanterior, oblique and lateral views of the left hand were obtained. 2. Posteroanterior, oblique and lateral views of the right hand were obtained. COMPARISON: Bilateral hand and MRI studies dated 06/05/2020 FINDINGS: Diffuse osteopenia at both hands. No acute fractures. Volar T plate and screw fixation at the distal left radius. There is also a small likely anchoring wire at the dorsal metaphysis of the left fourth middle phalanx. Fracture. Cerclage wire at the fused right first metacarpophalangeal joint. Chronic v olar subluxation verging on dislocation at the left second and third metacarpophalangeal joints, at t he left fourth proximal interphalangeal joint and at the right third metacarpophalangeal joint. Sever e secondary arthritis with joint space narrowing and remodeling of the associated articular surfaces at each of these joints. Additional severe osteoarthritis at the right first carpometacarpal, right f ifth proximal interphalangeal and left fifth metacarpophalangeal joints. Moderate osteoarthritis at t he left second and third proximal interphalangeal and right second proximal interphalangeal joint. Mi ld osteoarthritis at many of the remaining joints in the bilateral hands and wrists. Prominent periar ticular soft tissue swelling at the bilateral second metacarpophalangeal and left second proximal and distal interphalangeal joints. Lesser periarticular soft tissue swelling and a few of the remaining bilateral mid carpal phalangeal and interphalangeal joints. IMPRESSION: 1. Severe polyarticular osteoarthritis of both hands most notable at the right third and left second and third metacarpophalangeal joints and left fourth proximal interphalangeal joint, each with comet palmar subluxation suggesting secondary osteoarthritis related to chronic inflammatory arthritis such as provided history of rheumatoid arthritis. 2. Additional more typical pattern of polyarticular osteoarthritis, severe at the right first carpome tacarpal joint and mild to moderate severity at multiple interphalangeal joints. 2. Postoperative changes in the bilateral hands and distal left forearm as previously detailed. No ac lincoln osseous abnormality. Reviewed, dictated and finalized at location A. IMPRESSION: 1. Severe polyarticular osteoarthritis of both hands most notable at the right third and left second and third metacarpophalangeal joints and left fourth prox imal interphalangeal joint, each with comet palmar subluxation suggesting secon alyssa osteoarthritis related to chronic inflammatory arthritis such as provided history of rheumatoid arthritis. 2. Additional more typical pattern of polyarticular osteoarthritis, severe at t he right first carpometacarpal joint and mild to moderate severity at multiple interphalangeal joints. 2. Postoperative changes in the bilateral hands and distal left forearm as prev iously detailed. No acute osseous abnormality.
--- NOTE | ~2022-04-22 | XR_ITS ---
EXAMINATION: XR thoracic spine 3V DATE: 04/23/2022 00:58 INDICATION: Back pain. Rheumatoid arthritis flare. TECHNIQUE: One AP, lateral and lateral swimmer's views of the thoracic spine were obtained. COMPARISON: CT dated 03/14/2020 and chest radiograph dated 05/01/2020 FINDINGS: Alignment is normal accounting for slight rightward rotation on the AP projection. Vertebral body hei ghts are normal. Mild to moderate disc height loss at multiple levels in the mid to lower thoracic sp ine. Old healed fracture of the posterolateral right third rib. Biapical pleural-parenchymal scarring . Visualized lungs are otherwise clear. Cardiomediastinal silhouette is normal. Old fracture deformit y proximal left humerus. IMPRESSION: 1. Mild to moderate thoracic spondylosis. Reviewed, dictated and finalized at location A.
[2022-04-22 18:44] VITALS: BP 144/66; PULSE 76; RESP 12; TEMP 36.7; O2SAT 100
--- NOTE | 2022-04-23 00:18 | ED.GENADULT ---
HPI - General Adult General Chief complaint: Unspecified <Gladys Javier PA-C - Last Filed: 04/23/22 02:54> Stated complaint: RA Flair Up <PARIS Loredo Last Filed: 04/23/22 02:54> Time Seen by Provider: 04/22/22 23:42 <PARIS Loredo Last Filed: 04/23/22 02:54> Source: patient <PARIS Loredo Last Filed: 04/23/22 02:54> Mode of arrival: ambulatory <PARIS Loredo Last Filed: 04/23/22 02:54> Limitations: no limitations <PARIS Loredo Last Filed: 04/23/22 02:54> History of Present Illness HPI narrative: This is a 57 year old female that presents to the ER for an RA flare ongoing over the last couple of days. Reports swelling and pain to joints on the left hand. Also reports pain in the right hand. Also reports upper back pain. No recent injury or trauma. Denies fever, numbness or weakness. <PARIS Loredo Last Filed: 04/23/22 02:54> Related Data Home medications: Home Medications Medication Instructions Recorded Confirmed mirtazapine 45 mg tablet See Rx Instructions PO DAILY 05/26/19 05/12/21 quetiapine 300 mg tablet 300 mg PO DAILY 05/26/19 05/12/21 sertraline 100 mg tablet 100 mg PO DAILY 05/26/19 05/12/21 alendronate 70 mg tablet 70 mg PO WEEKLY 05/12/21 05/12/21 baclofen 10 mg tablet 10 mg PO BID 05/12/21 05/12/21 clopidogrel 75 mg tablet 75 mg PO DAILY 05/12/21 05/12/21 ibandronate 150 mg tablet 150 mg PO DAILY 05/12/21 05/13/21 quetiapine 300 mg tablet 300 mg PO HS 05/13/21 05/13/21 cyanocobalamin (vitamin B-12) tablet 12/20/21 1,000 mcg tablet levetiracetam 500 mg tablet tablet PO 12/20/21 methotrexate sodium 2.5 mg tablet tablet 12/20/21 thiamine HCl (vitamin B1) 100 mg tablet 12/20/21 tablet umeclidinium 62.5 mcg-vilanterol ea inhalation 12/20/21 25 mcg/actuation powdr for inhalation (Anoro Ellipta) albuterol sulfate 90 mcg/actuation inh inhalation 01/03/22 aerosol inhaler <Gladys Javier PA-C - Last Filed: 04/23/22 02:54> Allergies/adverse reactions: Allergies Allergy/AdvReac Type Severity Reaction Status Date / Time amoxicillin [From Augmentin] Allergy Mild Rash Verified 04/23/22 01:29 clavulanic acid Allergy Mild Rash Verified 04/23/22 01:29 [From Augmentin] Penicillins Allergy Mild rash Verified 04/23/22 01:29 <Gladys Javier PA-C - Last Filed: 04/23/22 02:54> Review of Systems Review of Systems: CONSTITUTIONAL: Denies fever, MUSCULOSKELETAL: Reports back pain, joint pain, and myalgia. NEUROLOGIC: Denies numbness, or weakness. <Gladys Javier PA-C - Last Filed: 04/23/22 02:54> All systems reviewed & are unremarkable except as noted in HPI and below <Gladys Javier PA-C - Last Filed: 04/23/22 02:54> REPLACED BY [facility] Past Medical History Medical History: Medical History Anxiety disorder, unspecified Arthritis, rheumatoid Bipolar disorder Cat scratch fever (10/2018) With cellulitis Chronic kidney disease, stage 3 Compression fracture of T7 vertebra Delayed union of fracture of humerus Emphysema lung Essential (primary) hypertension Frequent sinus infections GERD (gastroesophageal reflux disease) History of smoking 30 or more pack years Hyperthyroidism Osteoporosis Other hyperlipidemia Pancreatitis Peripheral arterial disease with history of revascularization 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
[2022-04-23] MEDS: ACETAMINOPHEN 500 MG TABLET 1000 MG PO (01:29)
[2022-04-23] MEDS: KETOROLAC 30 MG/ML VIAL (*BKC) IM (01:31)
[2022-04-23 02:00] VITALS: BP 154/78; PULSE 97; RESP 18; O2SAT 100
== END 2022-04-23 03:06 | disposition home or self-care (01) ==
PROVIDERS: Emergency Provider Emergency Medicine
DX: M05.842 Other rheumatoid arthritis with rheumatoid factor of left hand (principal); M05.841 Other rheumatoid arthritis with rheumatoid factor of right hand; J43.9 Emphysema, unspecified; E78.49 Other hyperlipidemia; I12.9 Hypertensive chronic kidney disease with stage 1 through stage 4 chronic kidney disease, or unspecified chronic kidney disease; N18.30 Chronic kidney disease, stage 3 unspecified; K21.9 Gastro-esophageal reflux disease without esophagitis; M81.0 Age-related osteoporosis without current pathological fracture; I73.9 Peripheral vascular disease, unspecified; E55.9 Vitamin D deficiency, unspecified; E53.9 Vitamin B deficiency, unspecified; Z79.02 Long term (current) use of antithrombotics/antiplatelets; Z79.51 Long term (current) use of inhaled steroids; Z87.891 Personal history of nicotine dependence
CPT/HCPCS: 72072; 73130; 96372; 99284; A9270; J1885

== ENCOUNTER 2022-11-07 11:46 | Outpatient (CLI) | payer OTHER, SELFPAY ==
[2022-11-07 12:14] LABS: Hematocrit 31.8 % (37.0-47.0); Hemoglobin 9.7 g/dL (12.0-15.0); Mean Corpuscular HGB Conc 30.5 g/dl (32-36); Mean Corpuscular Hemoglobin 30.7 pg (26-34); Mean Corpuscular Volume 100.6 fl (80-100); Mean Platelet Volume 8.7 fl (7.4-10.4); Platelet Count Result 220 k/mm3 (150-375); Red Blood Count 3.16 M/mm3 (4.2-5.4); Red Cell Distribution Width 14.2 % (11.5-14.5); White Blood Count 3.9 K/mm3 (4.5-10.0)
[2022-11-07 12:26] LABS: Alanine Aminotransferase 22 U/L (6-35); Alkaline Phosphatase 87 U/L (38-126); Anion Gap 11 mmol/L (8-16); Aspartate Amino Transferase 24 U/L (14-36); Bilirubin,Total 0.4 mg/dL (0.2-1.3); Blood Urea Nitrogen 21 mg/dL (7-17); CRP 3.2 mg/dL (<1.0); Calcium 9.4 mg/dL (8.4-10.2); Carbon Dioxide 23 mmol/L (22-30); Chloride 109 mmol/L (98-107); Estimated Glomerular Filt Rate 33; Glucose 91 mg/dL (65-110); Potassium 4.6 mmol/L (3.4-5.0); Sodium 143 mmol/L (137-145)
== END 2022-11-07 11:47 | disposition home or self-care (01) ==
LOC: ANHLAB 11:47
PROVIDERS: Visit Provider Internal Medicine
DX: M05.741 Rheumatoid arthritis with rheumatoid factor of right hand without organ or systems involvement (principal); M05.742 Rheumatoid arthritis with rheumatoid factor of left hand without organ or systems involvement; M19.90 Unspecified osteoarthritis, unspecified site
CPT/HCPCS: 36415; 80053; 85027; 86140; 86480